=== PATIENT | female | born 1980 | race Caucasian/White ===

== ENCOUNTER → 2020-08-27 10:55 | Outpatient (BNVA) | payer OTHER, SELFPAY | PROVIDERS: PCP Family Medicine; Visit Provider Internal Medicine Cardiovascular Disease | DX: R00.2 Palpitations (principal) | CPT/HCPCS: 93005 ==

== ENCOUNTER → 2020-10-03 13:03 | Outpatient (REF) | payer OTHER, SELFPAY ==
--- NOTE | 2020-10-03 13:07 | CA_ITS ---
Transthoracic Echocardiogram Patient (Last, First, Middle): Jennifer Garza, Gender: Female Date of : 1980 Age: 39 Procedure Date: 10/03/2020 Procedure Type: Transthoracic Echocardiogram Location: OP Height: 162.56 cm Weight: 70.31 kg BSA: 1.76 m2 Heart Rate: bpm BP: 108 / 63 mmHg Patent Clerk: ADOLPH Rose MD: Waqas Christian MD Social Service Coordinator: Per Hamilton MD Symptoms: R00.2 - Palpitations Study Quality: Fair ECG Rhythm: Sinus Conclusions: - Normal study Findings Left Ventricle Normal left ventricular size, thickness, and systolic function. The visually estimated ejection fraction is between 60-65%. Diastolic function is normal for age. Right Ventricle Normal right ventricular cavity size and systolic function. Atria Both atria are normal in size. There is no evidence of interatrial shunt. Aortic Valve Normal aortic valve structure and function. There is mild aortic valve stenosis. There is no aortic valve regurgitation. Mitral Valve Normal mitral valve structure and function. There is trace mitral valve regurgitation. There is no mitral valve stenosis. Pulmonic Valve The pulmonic valve is likely normal. There is trace pulmonic valve regurgitation. Tricuspid Valve Normal tricuspid valve structure. There is trace tricuspid valve regurgitation. The right ventricular systolic pressure is normal. The right ventricular systolic pressure is 17 mmHg. Normal right atrial pressure. There is no evidence of pulmonary hypertension. Great Vessels All visible segments of the aorta are normal in size. The pulmonary artery was not well visualized. Venous The inferior vena cava is normal in size and collapses greater than 50% with inspiration. Pericardium/Pleural There is no evidence of pericardial effusion. Prior Study Comparison No prior study available for comparison. Measurements M-Mode Liner Measurements Normals - Women/Men AOV Cusps: 2.30 1.5-2.6 cm/m2 2D Linear Measurements IVSd: 0.68 0.6-0.9/0.6-1.0 cm LVIDd: 5.15 3.9-5.3/4.2-5.9 cm LVIDd Index: 2.93 2.4-3.2/2.2-3.1 cm/m2 LVIDs: 3.20 2.0-3.6 cm LVPWd: 0.73 0.7-1.1 cm Ao Root: 2.70 2.1-3.5 cm LA Diam: 3.20 2.7-3.8/3.0-4.0 cm LAIDs Index: 1.82 1.5-2.3 cm/m2 LV Mass: 151.27 67-162/88-224 g LV Mass Index: 85.95 43-95/49-115 g/m2 LVOT Diam: 1.90 3.0+(-)1.3 cm 2D Systolic Function EF 4C: 68.30 >55% EF 2C: 70.90 >55% EF BiP: 69.90 >55% Mitral Valve MV Pk E: 0.81 MV PK A: 0.49 MV Decel Time: 204.00 E/A: 1.60 E'Lateral: 14.90 E'Medial: 11.30 E/E' Med: 7.20 E/E' Lat: 5.40 PHT: 60.00 MVA PHT: 3.67 Decel [place]: 3.96 Aortic Valve AoV Pk Addy: 1.47 AoV Pk Grad: 9.00 LVOT LVOT Pk Addy: 0.79 LVOT Mn Addy: 0.58 LVOT VTI: 0.19 LVOT Pk Grad: 3.00 LVOT Mn Grad: 1.00 LVOT Diam: 1.90 LVOT Area: 2.84 Diastolic Function MV Pk E: 0.81 MV Pk A: 0.49 E/A: 1.60 E'Medial: 11.30 E/E' Med: 7.20 E' Laterial: 14.90 E/E' Lat: 5.40 Tricuspid Valve TR Pk Addy: 1.85 TR Pk Grad: 14.00 RA Press: 3.00 RVSP: 17.00 Great Vessels Aorta Ao Root-2D: 2.70 2.0-3.7 cm Ao Asc: 2.60 2.1-3.4 cm Ao Arch: 2.30 Pulmonary Valve PV Pk Addy: 1.30 Peak PV Grad: 7.00 Updated in Other Vendor System with Status of Final Per Hamilton MD electronically signed on 10/03/2020 4:42:43 PM with status of Final
[2020-10-03 14:06] LABS: MANUAL DIFF FLAG NO
[2020-10-03 14:13] LABS: Basophils Absolute Auto 0.1 X10*3/uL (0.0-0.2); Basophils Percent Auto 0.7 % (0-2); Eosinophils Percent Auto 0.3 % (0-4); Hematocrit 38.1 % (37-47); Hemoglobin 12.9 g/dl (12.0-16.0); Imm Gran Abs Auto 0.03 X10*3/uL (0.00-0.03); Imm Gran Pct Auto 0.3 % (0.0-0.4); Lymphocytes Absolute Auto 2.9 X10*3/uL (1.2-4.9); Lymphocytes Percent Auto 32.3 % (20-40); Mean Corpuscular HGB Conc 33.9 g/dl (31.0-35.0); Mean Corpuscular Volume 94.5 fL (80-98); Mean Platelet Volume 9.8 fL (9.4-12.3); Monocytes Absolute Auto 0.8 X10*3/uL (0.1-1.2); Monocytes Percent Auto 9.4 % (2-11); Platelet Count 322 X10*3/uL (160-400); Red Blood Count 4.03 X10*6/uL (4.20-5.50); White Blood Count 8.9 X10*3/uL (4.8-10.8)
[2020-10-03 14:37] LABS: Anion Gap 10 (12-20); Blood Urea Nitrogen 10 mg/dL (9-16); Calcium 8.9 mg/dL (8.4-10.2); Carbon Dioxide 27 mmol/L (22-29); Chloride 104 mmol/L (96-108); Estimated Glomerular Filt Rate > 60; Glucose Random 88 mg/dL (60-115); Sodium 137 mmol/L (135-145)
[2020-10-03 14:43] LABS: Troponin-I High Sensitivity < 3.5 ng/L (<3.5-17.0)
[2020-10-03 15:00] LABS: TSH reflex Free T4 2.39 uIU/mL (0.32-4.0)
== END ==
LOC: HO.CARD 13:03
PROVIDERS: PCP Family Medicine; Visit Provider Internal Medicine Cardiovascular Disease
DX: Z00.00 Encounter for general adult medical examination without abnormal findings (principal); R00.2 Palpitations; R55 Syncope and collapse
CPT/HCPCS: 36415; 80048; 84443; 84484; 85025; 93306

== ENCOUNTER → 2020-10-22 11:02 | Outpatient (BNVA) | payer OTHER, SELFPAY | PROVIDERS: PCP Family Medicine; Visit Provider Nurse Practitioner Family ==

== ENCOUNTER → 2020-12-03 11:48 | Outpatient (BNVA) | payer OTHER, SELFPAY | PROVIDERS: PCP Family Medicine; Visit Provider Nurse Practitioner Family ==

== ENCOUNTER 2022-02-26 07:26 | Outpatient (REF) | payer OTHER, SELFPAY ==
[2022-02-26 07:45] LABS: MANUAL DIFF FLAG NO
[2022-02-26 07:55] LABS: Basophils Absolute Auto 0.1 X10*3/uL (0.0-0.2); Basophils Percent Auto 0.7 % (0-2); Eosinophils Absolute Auto 0.1 X10*3/uL (0.0-0.4); Eosinophils Percent Auto 0.9 % (0-4); Hematocrit 38.3 % (37.0-47.0); Hemoglobin 13.2 g/dl (12.0-16.0); Imm Gran Abs Auto 0.01 X10*3/uL (0.00-0.03); Imm Gran Pct Auto 0.1 % (0.0-0.4); Lymphocytes Absolute Auto 2.7 X10*3/uL (1.2-4.9); Lymphocytes Percent Auto 38.6 % (20-40); Mean Corpuscular HGB Conc 34.5 g/dl (31.0-35.0); Mean Platelet Volume 9.8 fL (9.4-12.3); Monocytes Absolute Auto 0.6 X10*3/uL (0.1-1.2); Monocytes Percent Auto 9.2 % (2-11); Neutrophils Absolute Auto 3.5 x10*3/uL (2.0-8.3); Neutrophils Percent Auto 50.5 % (45-73); Platelet Count 319 X10*3/uL (160-400); Red Blood Count 4.12 X10*6/uL (4.20-5.50); Red Cell Distribution Width 12.3 % (11.0-16.0)
[2022-02-26 08:22] LABS: Alanine Aminotransferase 16 U/L (0-31); Albumin Level 4.3 g/dL (3.5-5.0); Alkaline Phosphatase 60 U/L (39-117); Anion Gap 14 (12-20); Aspartate Amino Transferase 18 U/L (5-31); Bilirubin Total 0.7 mg/dL (0.0-1.0); Blood Urea Nitrogen 6 mg/dL (9-16); Calcium 8.9 mg/dL (8.4-10.2); Carbon Dioxide 24 mmol/L (22-29); Chloride 103 mmol/L (96-108); Cholesterol 183 mg/dL; Estimated Glomerular Filt Rate > 60; Glucose Fasting 86 mg/dL (60-99); HDL Cholesterol 60 mg/dL; LDL Cholesterol Calculated 112 mg/dl; Potassium 3.9 mmol/L (3.3-5.1); Sodium 137 mmol/L (135-145); Total Protein 6.6 g/dL (6.5-8.0); Triglycerides 59 mg/dL
[2022-02-26 09:30] LABS: Free T4 (Free Thyroxine) 1.07 ng/dL (0.71-1.85)
== END 2022-02-26 07:27 | disposition home or self-care (01) ==
LOC: HO.LAB 07:26
PROVIDERS: PCP Family Medicine; Visit Provider Nurse Practitioner Family
DX: Z00.00 Encounter for general adult medical examination without abnormal findings (principal)
CPT/HCPCS: 36415; 80053; 80061; 84439; 84443; 85025

== ENCOUNTER 2022-03-05 12:28 | Outpatient (REF) | payer OTHER, SELFPAY ==
[2022-03-08 17:12] LABS: Thyroid Peroxidase Antibodies 1 IU/mL (<9)
== END 2022-03-05 12:29 | disposition home or self-care (01) ==
LOC: HO.WFDLDS 12:28
PROVIDERS: Visit Provider Nurse Practitioner Family
DX: E03.8 Other specified hypothyroidism (principal)
CPT/HCPCS: 36415; 86376

== ENCOUNTER 2022-06-22 11:43 | Outpatient (REF) | payer OTHER, SELFPAY ==
[2022-06-22 14:40] LABS: TSH reflex Free T4 3.13 uIU/mL (0.32-4.0)
== END 2022-06-22 11:44 | disposition home or self-care (01) ==
LOC: HO.WFDLDS 11:43
PROVIDERS: Visit Provider Nurse Practitioner Family
DX: E03.8 Other specified hypothyroidism (principal)
CPT/HCPCS: 36415; 84443

== ENCOUNTER 2022-11-09 15:00 | Outpatient (RCR) | payer OTHER, SELFPAY ==
--- NOTE | 2022-09-08 09:02 | MHC.OT.EP ---
[address] [phone] Occupational Therapy Plan of Care Date of Evaluation: 09/08/22 Diagnosis: Right elbow pain Pain Location: 2/10 mild pain at rest 6/10 sharp pain w/ use Pain Score: 6 Aggravating Factors: Reaching, grasping, sleeping Alleviating Factors: Occasional ibuprofen, topical cream Trialed ice and heat Assessment: 41 yo right hand dominant female presents w/ persistent right elbow pain over the past few months. She reports pain w/ reaching, grasping, lifting, sleeping and some work tasks. On assessment, ROM and gross UE strength are WFL, but right gross grasp is weakened, even moreso w/ elbow extended. She reports mild tenderness over right lateral epicondyle and some tension/fatigue in mobile wad. We have initiated treatment for right lateral epicondylitis w/ CFB, massage and general information of joint protection and activity modification, she will benefit from cont'd therapy services for opitmal gains and return to full daily activities. Frequency and Duration: The patient will be seen 2x/wk Short Term Goals: Ind w/ CFB wear Pt to report ease w/ sleep w/ modifications to positionijng Pt to report good follow through w/ joint protection and activity modification Good follow through w/ HEP Seismology Teacher Goals: Pain from right elbow w/ moderate daily activities Right gross grasp >45lb w/ minimal pain/discomfort Ind w/ progression of eccentric strengthening exercises Pt to return to running and light strengthening routine Complete/discuss work modifications and worksite ergonomic assessment Treatment Plan: Therapeutic Exercise Therapeutic Activity Home Exercise Program Patient Education ADL Training Ultrasound Iontophoresis MHP Cold Packs Joint Mobilization Soft Tissue Mobilization Kinesiotaping Dexamethasone Electronically Signed By: iMtra Freeman OTR/L CHT Please Sign and return to therapist. Thank you once again for your referral.
--- NOTE | 2022-11-09 15:37 | MHC.OT.DC ---
[address] [phone] F: [phone] Occupational Therapy Discharge Note Patient Name: Jennifer Garza Provider: Merlin Garcia NP Diagnosis: Right elbow pain Date of Evaluation: 09/08/22 Date of Discharge: 11/09/22 Treatments to Date: 8 Discharge Status: Achieved Goals Improved Function Independent with HEP Discharge Summary: Jennifer was referred to OT w/ acute right lateral epicondylitis. She has done well w/ home exercise program, activity modification, and wearing counter-force brace appropriately. She reports some discomfort after running and upper body strengthening at gym, but overall has low pain and good follow through w/ recommendations for self management. Electronically Signed By: STEPHANIE Kiser/Diandra Reviewed/agree with student documentation: Therapist: Please Sign and return to therapist, thank you for your referral.
== END 2022-11-09 15:37 | disposition home or self-care (01) ==
LOC: HO.OT 15:00
PROVIDERS: PCP Nurse Practitioner Family; Visit Provider Nurse Practitioner Family
DX: M77.11 Lateral epicondylitis, right elbow (principal)
CPT/HCPCS: 97035; 97110; 97140; 97165

== ENCOUNTER 2023-03-22 13:58 | Outpatient (AMB) | payer OTHER, SELFPAY ==
--- NOTE | 2023-03-22 13:59 | MHC.PC.OV ---
Vital Signs 03/22/23 14:00 Height 5 ft 4 in Weight 153 lb 2 oz BMI 26.3 BP 98/66 Blood Pressure Location Lt brachial Position Sitting Respiration 12 Pulse 62 Pulse Source Pulse Oximeter Temp 97.3 F Temp Source Temporal Artery Scan Pulse Oximetry (%) 99 Oxygen Delivery Method Room Air Intake Visit Reasons: Orthopedic Referral-Bone Spur on Left Big Toe Intake Note: Patient states that shes had this going on for about 11 years. Patient states that she has been to Orthopedics but it was years ago and now it has been bothering her way more and she has stopped running due to it. Patient states she has limited mobility of the left big toe and the pain is shooting into her ankle. Manager Social Services Required: No Accompanied by: Self / Same As Patient Allergies sulfamethoxazole [From Bactrim] Allergy (Intermediate, Verified 03/22/23 14:29) Dizziness trimethoprim [From Bactrim] Allergy (Intermediate, Verified 03/22/23 14:29) Dizziness amoxicillin Allergy (Unknown, Verified 03/22/23 14:29) hives penicillin V Allergy (Unknown, Verified 03/22/23 14:29) hives sertraline [From Zoloft] Allergy (Unknown, Verified 03/22/23 14:29) SON ABD PAIN Medication List - Last Reconciled 03/22/23 by Merlin Garcia CNP albuterol sulfate 90 mcg/actuation 2 puffs PO Q6H PRN 30 days ibuprofen 600 mg PO Q8H PRN lorazepam 0.5 mg PO ONCE PRN 4 days rizatriptan take 1 tab at onset of headache; if no relief may repeat 1 tab after at least 2 hrs; max = 3 tabs/24 hr PO Tobacco use date assessed: 11/22/22 Dental Screening Dental Screen Date: 03/22/23 Did you have a dental visit in the last 12 months?: Yes Did you have a dental problem in the last 6 months where you did not have access to dental care?: No Was dental information given to patient?: Patient has dentist HPI HPI Comments History of Present Illness Details 42-year-old female present with complaints of bone spur to her left great toe which has been present for 11 years. She notes intermittent pain from the top of the left great toe and sometimes radiates to the ankle. She states the pain limits her mobility and she completely stopped running 2 months ago. She notes she was followed by [facility] in 2012 and was diagnosed as a bone spur. She notes she already an appointment with Dr. Mckeon, orthopedics surgeon next month and requests a referral. [facility] Medical History History of palpitations Surgical History History of wisdom tooth extraction Family History (Updated 03/22/23 @ 14:11 by Ashley Almanza MA) Mother Breast cancer Maternal Grandfather Atrial fibrillation Paternal Grandmother Heart valve replaced Father No problems noted. 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 Barney Sommers, Guillermina Bhatti, Nirav Molina and colleagues, with an educational linda from [employer]. Review of Systems Const Details: Const Denies chills, Denies fatigue, Denies fever(s), Denies headache(s) and Denies weakness ENT Denies dizziness and Denies headache(s) Card Denies chest pain, Denies lightheadedness, Denies dyspnea and Denies other (Palpitations) Resp Denies cough, Denies dyspnea, Denies wheezing and Denies other ( shortness of breath) GI Denies abdominal pain, Denies melena, Denies hematochezia, Denies change in bowel habits, Denies dyspepsia and Denies nausea Denies hematuria and Denies dysuria Musc Reports as per HPI Skin/Breast Denies rash, Denies unusual bruising and Denies wounds Neuro Denies abnormal gait, Denies dizziness, Denies headache(s), Denies memory loss, Denies numbness, Denies Sensory deficit (Neuro), Denies tingling and Denies weakness Psych Denies anxiety, Denies depression, Denies memory loss Endo Denies cold intolerance, Denies fatigue, Denies heat intolerance, Denies polydipsia and Denies polyuria Aller/Immun Denies wheezing Physical exam (Primary Care) Vital Signs: Last Vital Signs Temp 97.3 F 03/22/23 14:00 Pulse 62 03/22/23 14:00 Resp 12 03/22/23 14:00 BP 98/66 03/22/23 14:00 Pulse Ox 99 03/22/23 14:00 Oxygen Delivery Method Room Air 03/22/23 14:00 BMI result Body Mass Index 26.3 Tobacco/Smoking Status: Tobacco use Status Tobacco use date assessed 11/22/22 03/22/23 14:13 Patient Tobacco Use Status Former Tobacco user 03/22/23 14:13 e-Cigarette/Vaping Use Never Used 03/22/23 14:13 Thrive Assessment: Date of Thrive Assessment Date Thrive assessed 11/22/22 03/22/23 14:13 Const Other: General: no acute distress and well developed Nutritional Appearance: well nourished Orientation/consciousness: patient oriented x3 HENMT Head: Yes normocephalic and Yes atraumatic Eyes General: appearance normal, both eyes and all related structures Pupils: Equal, round and reactive pupils present EOM: EOMs intact bilaterally Resp Effort & Inspection: normal respiratory effort Auscultation: clear to auscultation bilaterally Cardio Rate: regular rate Rhythm: regular rhythm Heart sounds: S1 normal heart sound present, S2 normal heart sound present, no gallops, no murmurs and no rubs GI Palpation (GI): No Abdominal aortic bruit present, Soft to palpation, nontender, No hepatosplenomegaly present and No Rebound tenderness present Auscultation: normal bowel sounds General: Yes no CVA tenderness Back/Spine/Pelvis Back: no CVA tenderness Cervical Spine: cervical ROM normal and No Cervical spine tenderness Thoracic/Lumbar Spine: thoraco-lumbar ROM normal, No pain with thoraco-lumbar ROM, No thoracic spinal tenderness and No lumbar spinal tenderness Extrem General: Yes normal to inspection, No edema and No calf tenderness Normal ROM of the left great toe, no edema, erythema or overt trauma/injury Skin General: warm and dry. Normal skin color. Normal skin turgor Lesions: no lesions Rashes: no rashes Trauma: no lacerations or abrasions Wounds: no wounds Nails: normal Neuro General: patient oriented x3, gait normal and no focal neuro deficit Cranial nerves: Yes Equal, round and reactive pupils present Cognition (Neuro): normal cognition Gait exam (Neuro): Normal gait present Sensory Exam: No Sensory deficit (Neuro) Psych Appearance: grossly normal Affect: normal affect Attitude: cooperative Thought process: Normal thought process present Assessment and Plan Assessment & Plan (1) Pain of left great toe: Code(s): M79.675 - Pain in left toe(s) Plan: Normal ROM of the left great toe, no edema, erythema or overt trauma/injury Likely bone spur although arthritis as possible Ibuprofen as prescribed Warm/cold compresses encouraged Referred to orthopedic surgery Return with worsening or new symptoms Verbalized understanding and agreed with treatment plan. Orders: Referrals Orthopedics Referral M79.675 - Pain in left toe(s) Coding Level of Care Code Est Pt Level 3 (30691) Diagnoses Pain of left great toe M79.675
[2023-03-22 14:00] VITALS: BP 98/66; PULSE 62; RESP 12; TEMP 36.3; O2SAT 99; BMI 26.3
== END 2023-03-22 14:50 | disposition home or self-care (01) ==
PROVIDERS: PCP Nurse Practitioner Family; Visit Provider Nurse Practitioner Family
DX: M79.675 Pain in left toe(s) (principal)
CPT/HCPCS: 99213

== ENCOUNTER 2023-04-05 15:48 | Outpatient (AMB) | payer OTHER, SELFPAY ==
--- NOTE | 2023-04-05 15:51 | A.OFFPC_ITS ---
Vital Signs 04/05/23 15:52 Height 5 ft 4 in Weight 151 lb 6 oz BMI 26.0 BP 98/64 Blood Pressure Location Rt brachial Position Sitting Respiration 12 Pulse 70 Pulse Source Pulse Oximeter Temp 97 F Temp Source Temporal Artery Scan Pulse Oximetry (%) 99 Oxygen Delivery Method Room Air Intake Visit Reasons: Cheilectomy/Real Osteotomy Surgery lt foot 05/02/23, Pre-op visit (general surgery) Operations Project Manager Required: No Accompanied by: Self / Same As Patient Allergies sulfamethoxazole [From Bactrim] Allergy (Intermediate, Verified 04/05/23 16:15) Dizziness trimethoprim [From Bactrim] Allergy (Intermediate, Verified 04/05/23 16:15) Dizziness amoxicillin Allergy (Unknown, Verified 04/05/23 16:15) hives penicillin V Allergy (Unknown, Verified 04/05/23 16:15) hives sertraline [From Zoloft] Allergy (Unknown, Verified 04/05/23 16:15) SON ABD PAIN Medication List - Last Reconciled 04/05/23 by Merlin Garcia CNP albuterol sulfate 90 mcg/actuation 2 puffs PO Q6H PRN 30 days ibuprofen 600 mg PO Q8H PRN lorazepam 0.5 mg PO ONCE PRN 4 days rizatriptan take 1 tab at onset of headache; if no relief may repeat 1 tab after at least 2 hrs; max = 3 tabs/24 hr PO Tobacco use date assessed: 11/22/22 Dental Screening Dental Screen Date: 04/05/23 Did you have a dental visit in the last 12 months?: Yes Did you have a dental problem in the last 6 months where you did not have access to dental care?: No Was dental information given to patient?: Patient has dentist HPI HPI Comments History of Present Illness Details 42-year-old female presents for a preop exam. She notes she has surgery on 05/02/2023 to remove bone spur to left great toe. She notes that her last Pap smear is test was a year ago: Normal [facility] Medical History History of palpitations Surgical History History of wisdom tooth extraction Family History Mother Breast cancer Maternal Grandfather Atrial fibrillation Paternal Grandmother Heart valve replaced Father No problems noted. 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 Barney Sommers, Guillermina Bhatti, Nirav Molina and colleagues, with an educational linda from [employer]. Review of Systems Const Details: Denies chills, Denies fatigue, Denies fever(s), Denies headache(s) and Denies weakness HEENT Denies change in vision, Denies dizziness, Denies headache(s), Denies hearing loss, Denies nasal congestion, Denies sinus pain, Denies sinus pressure and Denies sore throat Card Denies chest pain, Denies lightheadedness, Denies dyspnea and Denies other (palpitations) Resp Denies cough, Denies dyspnea and Denies wheezing GI Denies abdominal pain, Denies melena, Denies hematochezia, Denies change in bowel habits, Denies dyspepsia and Denies nausea Denies hematuria and Denies dysuria Musc Denies abnormal gait, Denies myalgias, Denies arthralgias, Denies numbness and Denies tingling Skin/Breast Denies rash, Denies unusual bruising and Denies wounds Neuro Denies abnormal gait, Denies dizziness, Denies headache(s), Denies memory loss, Denies numbness, Denies Sensory deficit (Neuro), Denies tingling and Denies weakness Psych Denies anxiety, Denies depression and Denies memory loss Endo Denies cold intolerance, Denies fatigue, Denies heat intolerance, Denies polydipsia and Denies polyuria Scotty/Lymph Denies easy bleeding and Denies easy bruising Aller/Immun Denies wheezing Physical exam (Primary Care) Vital Signs: Last Vital Signs Temp 97 F 04/05/23 15:52 Pulse 70 04/05/23 15:52 Resp 12 04/05/23 15:52 BP 98/64 04/05/23 15:52 Pulse Ox 99 04/05/23 15:52 Oxygen Delivery Method Room Air 04/05/23 15:52 BMI result Body Mass Index 26.0 Tobacco/Smoking Status: Tobacco use Status Tobacco use date assessed 11/22/22 04/05/23 16:00 Patient Tobacco Use Status Former Tobacco user 04/05/23 16:00 e-Cigarette/Vaping Use Never Used 04/05/23 16:00 Thrive Assessment: Date of Thrive Assessment Date Thrive assessed 11/22/22 04/05/23 16:00 Const Other: General: no acute distress, well developed, alert and awake Nutritional Appearance: well nourished Orientation/consciousness: patient oriented x3 HENMT Head: Yes normocephalic and Yes atraumatic Ears: hearing grossly normal bilaterally and TM's normal bilaterally General nose exam: Normal external nose present and Normal nares present Mouth: Normal oral and palatal mucosa present and moist mucous membranes Teeth and gingiva: dentition normal Throat: Yes oropharynx normal Eyes Pupils: Equal, round and reactive pupils present and Pupil accommodation reflex normal EOM: EOMs intact bilaterally Neck Neck: Yes normal visual inspection, Yes no lymphadenopathy and Yes trachea midline Thyroid: Thyroid normal Carotids: no bruits Lymphatic: no lymphadenopathy noted Chest Chest palpation & inspection: normal inspection of the chest Resp Effort & Inspection: normal respiratory effort Auscultation: clear to auscultation bilaterally Cardio Rate: regular rate Rhythm: regular rhythm Heart sounds: S1 normal heart sound present, S2 normal heart sound present, no gallops, no murmurs and no rubs Bruits: no abdominal aortic bruits and no carotid bruits GI Palpation (GI): No Abdominal aortic bruit present, Soft to palpation, nontender, No hepatosplenomegaly present and No Rebound tenderness present Auscultation: normal bowel sounds General: Yes no CVA tenderness Back/Spine/Pelvis Back: no CVA tenderness Cervical Spine: cervical ROM normal and No Cervical spine tenderness Thoracic/Lumbar Spine: thoraco-lumbar ROM normal, No pain with thoraco-lumbar ROM, No thoracic spinal tenderness and No lumbar spinal tenderness Skin General: warm and dry. Normal skin color. Normal skin turgor Lesions: no lesions Rashes: no rashes Trauma: no lacerations or abrasions Wounds: no wounds Nails: normal Neuro General: patient oriented x3, gait normal and CN's II-XI intact bilaterally Cranial nerves: Yes Equal, round and reactive pupils present Cognition (Neuro): normal cognition Gait exam (Neuro): Normal gait present Motor exam (neuro): 5/5 motor strength present throughout Sensory Exam: No Sensory deficit (Neuro) Deep tendon reflexes (DTR's): Right patellar reflex intensity grade: 2+ and Left patellar reflex intensity grade: 2+ Extrem General: Yes normal to inspection, No edema and No calf tenderness Psych Appearance: grossly normal Affect: normal affect Attitude: cooperative Thought process: Normal thought process present Assessment and Plan Assessment & Plan (1) Routine physicl lab exam: Code(s): Z00.00 - Encounter for general adult medical examination without abnormal findings Plan: Normal physical exam of 42-year-old female No significant physical restrictions or limitations noted Labs ordered Will review results and affect patient with significant findings Return with symptoms or concerns Verbalized understanding and agreed with the plan. Orders: Orders Complete Blood Count Auto Diff Today Z00.00 - Encounter for general adult medical examination without abnormal findings Comprehensive [place]. Panel Fast Today Z00.00 - Encounter for general adult medical examination without abnormal findings Coding Level of Care Code Est Pt Prev Care 40-64y(66200) Diagnoses Routine physicl lab exam Z00.00
[2023-04-05 15:52] VITALS: BP 98/64; PULSE 70; RESP 12; TEMP 36.1; O2SAT 99; BMI 26.0
== END 2023-04-05 16:29 | disposition home or self-care (01) ==
PROVIDERS: PCP Nurse Practitioner Family; Visit Provider Nurse Practitioner Family
DX: Z00.00 Encounter for general adult medical examination without abnormal findings (principal)
CPT/HCPCS: 99396

== ENCOUNTER 2023-04-29 08:30 | Outpatient (REF) | payer OTHER, SELFPAY | END 2023-04-29 08:31 | disposition home or self-care (01) | LOC: HO.LAB 08:30 | PROVIDERS: PCP Nurse Practitioner Family; Visit Provider Nurse Practitioner Family | DX: Z00.00 Encounter for general adult medical examination without abnormal findings (principal) | CPT/HCPCS: 36415; 80053; 85025 ==

== ENCOUNTER 2024-01-11 11:03 | Outpatient (REF) | payer OTHER, SELFPAY ==
[2024-01-11 11:28] LABS: MANUAL DIFF FLAG NO
[2024-01-11 12:14] LABS: Basophils Absolute Auto 0.1 X10*3/uL (0.0-0.2); Basophils Percent Auto 1.2 % (0-2); Eosinophils Absolute Auto 0.1 X10*3/uL (0.0-0.4); Eosinophils Percent Auto 1.2 % (0-4); Hematocrit 39.3 % (37.0-47.0); Hemoglobin 13.7 g/dl (12.0-16.0); Imm Gran Abs Auto 0.02 X10*3/uL (0.00-0.03); Imm Gran Pct Auto 0.3 % (0.0-0.4); Lymphocytes Absolute Auto 2.9 X10*3/uL (1.2-4.9); Lymphocytes Percent Auto 39.6 % (20-40); Mean Corpuscular HGB Conc 34.9 g/dl (31.0-35.0); Mean Corpuscular Volume 91.8 fL (80.0-98.0); Mean Platelet Volume 9.9 fL (9.4-12.3); Monocytes Absolute Auto 0.6 X10*3/uL (0.1-1.2); Monocytes Percent Auto 8.4 % (2-11); Neutrophils Absolute Auto 3.7 x10*3/uL (2.0-8.3); Neutrophils Percent Auto 49.3 % (45-73); Platelet Count 315 X10*3/uL (160-400); Red Blood Count 4.28 X10*6/uL (4.20-5.50); Red Cell Distribution Width 12.4 % (11.0-16.0); White Blood Count 7.4 X10*3/uL (4.8-10.8)
[2024-01-11 12:55] LABS: Alanine Aminotransferase 18 U/L (0-31); Albumin Level 4.2 g/dL (3.5-5.0); Alkaline Phosphatase 65 U/L (39-117); Anion Gap 10 (12-20); Aspartate Amino Transferase 19 U/L (5-31); Bilirubin Total 0.5 mg/dL (0.0-1.0); Blood Urea Nitrogen 7 mg/dL (9-16); Calcium 9.1 mg/dL (8.4-10.2); Carbon Dioxide 27 mmol/L (22-29); Chloride 106 mmol/L (96-108); Cholesterol 205 mg/dL (<200); Estimated Glomerular Filt Rate > 60; Gamma Glutamyl Transpeptidase 12 U/L (7-33); Glucose Random 88 mg/dL (60-115); HDL Cholesterol 64 mg/dL (>40); Iron 95 mcg/dL (30-160); LDL Cholesterol Calculated 124 mg/dL (<100); Percent Iron Saturation 31 % (15-50); Potassium 3.7 mmol/L (3.3-5.1); Sodium 139 mmol/L (135-145); Total Iron Binding Capacity 311 mcg/dL (228-428); Total Protein 6.9 g/dL (6.5-8.0); Triglycerides 86 mg/dL (<150); Unsaturated Iron Binding 216 ug/dL
[2024-01-11 12:59] LABS: Parathyroid Hormone Intact 66.7 pg/mL (8.7-77.1)
[2024-01-11 13:17] LABS: Ferritin 30 ng/mL (10-250); Free T4 (Free Thyroxine) 0.94 ng/dL (0.71-1.85); Insulin 4 uU/mL (2-29); Thyroid Stimulating Hormone 2.74 uIU/mL (0.32-4.0); Vitamin D 25-OH Total 33.1 ng/mL (>30)
[2024-01-12 16:34] LABS: DHEA Sulfate 37 mcg/dL (15-205); Follicle Stimulating Hormone 6.7 mIU/mL; Lutenizing Hormone 5.5 mIU/mL; Triiodothyronine T3 Free 3.1 pg/mL (2.3-4.2)
[2024-01-12 16:48] LABS: Homocysteine 7.8 umol/L (<10.4)
[2024-01-12 17:39] LABS: Thyroglobulin Antibodies <1 IU/mL (< or = 1); Thyroid Peroxidase Antibodies 1 IU/mL (<9)
[2024-01-12 22:18] LABS: CRP High Sensitivity <0.2 mg/L
[2024-01-15 11:57] LABS: Methylmalonic Acid 112 nmol/L (55-335); Triiodothyronine T3 Reverse 13 ng/dL (8-25)
[2024-01-17 12:12] LABS: Testosterone, Free 2.7 pg/mL (0.1-6.4); Testosterone, Total 33 ng/dL (2-45)
[2024-01-19 08:56] LABS: Estradiol Ultra Sensitive 160 pg/mL
[2024-01-19 08:57] LABS: Dihydrotestosterone <5 ng/dL (< OR = 20)
[2024-01-21 01:49] LABS: Progesterone 6.1 ng/mL
== END 2024-01-11 11:04 | disposition home or self-care (01) ==
LOC: HO.LAB 11:03
PROVIDERS: PCP Nurse Practitioner Family; Visit Provider Internal Medicine
DX: E03.9 Hypothyroidism, unspecified (principal); F32.81 Premenstrual dysphoric disorder; E11.9 Type 2 diabetes mellitus without complications; D64.9 Anemia, unspecified; E28.2 Polycystic ovarian syndrome; E78.5 Hyperlipidemia, unspecified; K76.0 Fatty (change of) liver, not elsewhere classified; R53.83 Other fatigue
CPT/HCPCS: 36415; 80053; 80061; 82306; 82627; 82642; 82670; 82728; 82977; 83001; 83002; 83090; 83525; 83540; 83921; 83970; 84144; 84402; 84403; 84439; 84443; 84481; 84482; 85025; 86141; 86376; 86800

== ENCOUNTER 2024-04-10 10:27 | Outpatient (AMB) | payer OTHER, SELFPAY ==
--- NOTE | 2024-04-10 10:35 | A.OFFPC_ITS ---
Vital Signs 04/10/24 10:40 Height 5 ft 4 in Weight 152 lb 8 oz BMI 26.2 BP 102/62 Blood Pressure Location Rt brachial Position Sitting Respiration 16 Pulse 66 Pulse Source Pulse Oximeter Temp 97.9 F Temp Source Oral Pulse Oximetry (%) 99 Oxygen Delivery Method Room Air Intake Visit Reasons: cpe Intake Note: patient here for CPE. 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 Is last menstrual period known: Yes Last menstrual period: 03/16/24 Post menopausal: No Patient : No Allergies sulfamethoxazole [From Bactrim] Allergy (Intermediate, Verified 04/10/24 10:56) Dizziness trimethoprim [From Bactrim] Allergy (Intermediate, Verified 04/10/24 10:56) Dizziness amoxicillin Allergy (Unknown, Verified 04/10/24 10:56) hives penicillin V Allergy (Unknown, Verified 04/10/24 10:56) hives sertraline [From Zoloft] Allergy (Unknown, Verified 04/10/24 10:56) SON ABD PAIN Medication List - Last Reconciled 04/10/24 by Merlin Garcia CNP albuterol sulfate 90 mcg/actuation 2 puffs PO Q6H PRN 30 days ibuprofen 600 mg PO Q8H PRN lorazepam 0.5 mg PO ONCE PRN 4 days rizatriptan take 1 tab at onset of headache; if no relief may repeat 1 tab after at least 2 hrs; max = 3 tabs/24 hr PO Tobacco use date assessed: 04/10/24 Dental Screening Dental Screen Date: 04/10/24 Did you have a dental visit in the last 12 months?: Yes Did you have a dental problem in the last 6 months where you did not have access to dental care?: No Was dental information given to patient?: Patient has dentist HPI HPI Comments History of Present Illness Details 43-year-old female presents for an exten ded physical exam She has past medical history significant for anxiety, depression, and asthma. Her anxiety and depressive symptoms have been controlled without medications. She takes PRN ativan as needed for certain triggers such as flying. She notes that her asthma is well controlled. She also has history of left hallux valgus post surgery in 05/2023; she notes her mobility to the left great toe has been limited since the surgery. She had 8 weeks of physical therapy following the surgery She admits to taking her medications as prescribed without adverse reactions She notes that she eats and sleep well, she has been exercising routinely Former smoker. Drinks tequila or vodka 1-2 times monthly. 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 1. Little interest or pleasure in doing things: not at all 2. Feeling down, depressed, or hopeless: several days 3. Trouble falling or staying asleep, or sleeping too much: several days 4. Feeling tired or having little energy: several days 5. Poor appetite or overeating: not at all 6. Feeling bad about yourself - or that you are a failure or have let yourself or your family down: not at all 7. Trouble concentrating on things, such as reading the newspaper or watching television: several days 8. Moving or speaking so slowly that other people could have noticed. Or the opposite - being so fidgety or restless that you have been moving around a lot more than usual: not at all 9. Thoughts that you would be better off or of hurting yourself in some way: not at all Total score: 4 Depression Screening Interpretation: Negative Depression Screening Done: Yes 31816 - PHQ-9 Billing: Yes Source: Developed by Drs. Barney Sommers, Guillermina Bhatti, Nirav Molina and colleagues, with an educational linda from [employer]. Thrive Questionnaire Date Thrive assessed: 04/10/24 I am a: Patient What is your living situation today?: I have a steady place to live Within the past 12 months, did the food you bought not last and you didn't have the money to get more?: Never true Within the past 12 months, did you worry whether your food would run out before you got money to buy more?: Never true Do you have trouble paying for medicines?: No Do you have trouble getting transportation to medical appointments?: No Do you have trouble paying your heating and electricity bill?: No Do you have trouble taking care of your child, family member or friend?: No Do you have trouble with day-to-day activities such as bathing, preparing meals, shopping, managing finances, etc.?: No Are you currently unemployed and looking for a job?: No Are you interested in more education?: No Please select the resources that you would like help with: None Currently or been in a relationship where the following occur: No concerns reported THRIVE Score: 0 AUDIT C Alcohol Use Questionnaire (AUDIT-C) 1. How often do you have a drink containing alcohol?: 2-4 times a month 2. How many drinks containing alcohol do you have on a typical day when you are drinking?: 1 or 2 3. How often do you have six or more drinks on one occasion?: Never Total Score: 2 Score Reviewed/Action Taken: Yes BOBY-7 AMB Questionnaire BOBY-7 Date BOBY - 7 assessed: 04/10/24 Feeling nervous, anxious, or on edge: 1 = Several days Not being able to stop or control worryin = Not at all Worrying too much about different things: 1 = Several days Trouble relaxin = Not at all Being so restless that it is hard to sit still: 0 = Not at all Becoming easily annoyed or irritable: 1 = Several days Feeling afraid as if something awful might happen: 1 = Several days Total BOBY-7 score (0-4 normal; 5-9 mild; 10-14 moderate; 15-21 severe): 4 Source: Developed by Drs. Barney Sommers, Guillermina Bhatti, Nirav Molina and colleagues, with an educational linda from [employer]. BOBY-7 Assessment Billing BOBY-7 Assessment Tool: BOBY-7 Assessment 88825 ACT Questionnaire In the past 4 weeks, how much of the time did your asthma keep you from getting as much done at work, school or at home?: None of the time During the past 4 weeks, how often have you had shortness of breath?: Not at all During the past 4 weeks, how often did your asthma symptoms wake you up at night or earlier than usual in the morning?: Not at all During the past 4 weeks, how often have you had to use your rescue inhaler or nebulizer medication?: Not at all How would you rate your asthma control during the past 4 weeks?: Well controlled Score: 24 Review of Systems Const Details: Denies chills, Denies fatigue, Denies fever(s), Denies headache(s) and Denies weakness HEENT Denies change in vision, Denies dizziness, Denies headache(s), Denies hearing loss, Denies nasal congestion, Denies sinus pain, Denies sinus pressure and Denies sore throat Card Denies chest pain, Denies lightheadedness, Denies dyspnea and Denies other (palpitations) Resp Denies cough, Denies dyspnea and Denies wheezing GI Denies abdominal pain, Denies melena, Denies hematochezia, Denies change in bowel habits, Denies dyspepsia and Denies nausea Denies hematuria and Denies dysuria Musc Denies abnormal gait, Denies myalgias, Denies arthralgias, Denies numbness and Denies tingling Skin/Breast Denies rash, Denies unusual bruising and Denies wounds Neuro Denies abnormal gait, Denies dizziness, Denies headache(s), Denies memory loss, Denies numbness, Denies Sensory deficit (Neuro), Denies tingling and Denies weakness Psych Denies anxiety, Denies depression and Denies memory loss Endo Denies cold intolerance, Denies fatigue, Denies heat intolerance, Denies polydipsia and Denies polyuria Scotty/Lymph Denies easy bleeding and Denies easy bruising Aller/Immun Denies wheezing Physical exam (Primary Care) Vital Signs: Last Vital Signs Temp 97.9 F 04/10/24 10:40 Pulse 66 04/10/24 10:40 Resp 16 04/10/24 10:40 BP 102/62 04/10/24 10:40 Pulse Ox 99 04/10/24 10:40 Oxygen Delivery Method Room Air 04/10/24 10:40 BMI result Body Mass Index 26.2 Tobacco/Smoking Status: Tobacco use Status Tobacco use date assessed 04/10/24 04/10/24 10:39 Patient Tobacco Use Status Former Tobacco user 04/10/24 10:39 e-Cigarette/Vaping Use Never Used 04/10/24 10:39 PHQ-9: PHQ-9 Score PHQ-9: Total score 4 04/10/24 10:44 Depression Screening Interpretation: Negative Thrive Assessment: Date of Thrive Assessment Date Thrive assessed 04/10/24 04/10/24 10:44 Currently or been in a relationship where the following occur: No concerns reported Const Other: General: no acute distress, well developed, alert and awake Nutritional Appearance: well nourished Orientation/consciousness: patient oriented x3 HENMT Head: Yes normocephalic and Yes atraumatic Ears: hearing grossly normal bilaterally and TM's normal bilaterally General nose exam: Normal external nose present and Normal nares present Mouth: Normal oral and palatal mucosa present and moist mucous membranes Teeth and gingiva: dentition normal Throat: Yes oropharynx normal Eyes Pupils: Equal, round and reactive pupils present and Pupil accommodation reflex normal EOM: EOMs intact bilaterally Neck Neck: Yes normal visual inspection, Yes no lymphadenopathy and Yes trachea mi dline Thyroid: Thyroid normal Carotids: no bruits Lymphatic: no lymphadenopathy noted Chest Chest palpation & inspection: normal inspection of the chest Resp Effort & Inspection: normal respiratory effort Auscultation: clear to auscultation bilaterally Cardio Rate: regular rate Rhythm: regular rhythm Heart sounds: S1 normal heart sound present, S2 normal heart sound present, no gallops, no murmurs and no rubs Bruits: no abdominal aortic bruits and no carotid bruits GI Palpation (GI): No Abdominal aortic bruit present, Soft to palpation, nontender, No hepatosplenomegaly present and No Rebound tenderness present Auscultation: normal bowel sounds General: Yes no CVA tenderness Back/Spine/Pelvis Back: no CVA tenderness Cervical Spine: cervical ROM normal and No Cervical spine tenderness Thoracic/Lumbar Spine: thoraco-lumbar ROM normal, No pain with thoraco-lumbar ROM, No thoracic spinal tenderness and No lumbar spinal tenderness Skin General: warm and dry. Normal skin color. Normal skin turgor Lesions: no lesions Rashes: no rashes Trauma: no lacerations or abrasions Wounds: no wounds Nails: normal Neuro General: patient oriented x3, gait normal and CN's II-XI intact bilaterally Cranial nerves: Yes Equal, round and reactive pupils present Cognition (Neuro): normal cognition Gait exam (Neuro): Normal gait present Motor exam (neuro): 5/5 motor strength present throughout Sensory Exam: No Sensory deficit (Neuro) Deep tendon reflexes (DTR's): Right patellar reflex intensity grade: 2+ and Left patellar reflex intensity grade: 2+ Extrem General: Yes normal to inspection, No edema and No calf tenderness Psych Appearance: grossly normal Affect: normal affect Attitude: cooperative Thought process: Normal thought process present Assessment and Plan Assessment & Plan (1) Normal physical exam: Code(s): Z00.00 - Encounter for general adult medical examination without abnormal findings Plan: No significant physical restrictions or limitations noted Continue current treatment regimen Healthy diet and routine exercise encouraged Advised to get lab work done and follow-up for telehealth visit in 2-3 weeks for labs review Return sooner with symptoms or concerns Verbalized understanding and agreed with the treatment plan (2) Asthma: Code(s): J45.909 - Unspecified asthma, uncomplicated Plan: Controlled ACT score is 24 Albuterol inhaler as needed (3) Anxiety: Code(s): F41.9 - Anxiety disorder, unspecified Plan: Controlled PHQ-9 and BOBY-7 scores are normal Ativan as needed Routine exercise encouraged Follow-up with symptoms or concerns Verbalized understanding and agreed with the plan (4) Depression: Code(s): F32.A - Depression, unspecified Plan: As above (5) Breast cancer screening by mammogram: Code(s): Z12.31 - Encounter for screening mammogram for malignant neoplasm of breast Plan: Last mammogram was almost 2 years ago Mammogram ordered (6) Laboratory tests ordered as part of a complete physical exam (CPE): Code(s): Z00.00 - Encounter for general adult medical examination without abnormal findings Plan: Fasting labs ordered as part of a complete physical exam. Advised to fast for at least 10 hours before getting labs drawn. May drink water Verbalized understanding and agreed with treatment plan. Orders: Orders UA CC w/rflx Micro + Cult Today Z00.00 - Encounter for general adult medical examination without abnormal findings Microalbumin, Random (w Creat) Today Z00.00 - Encounter for general adult medical examination without abnormal findings Lipid Panel Today Z00.00 - Encounter for general adult medical examination without abnormal findings MM screening mammo BI Today Z12.31 - Encounter for screening mammogram for malignant neoplasm of breast Coding Level of Care Code Est Pt Prev Care 40-64y(31855) Diagnoses Normal physical exam Z00.00 Asthma J45.909 Anxiety F41.9 Depression F32.A Breast cancer screening by mammogram Z12.31 Laboratory tests ordered as part of a complete physical exam (CPE) Z00.00 Additional Codes BOBY-7 Assessment Billing - BOBY-7 Assessment Tool: BOBY-7 Assessment 16168 ([id number])
[2024-04-10 10:40] VITALS: BP 102/62; PULSE 66; RESP 16; TEMP 36.6; O2SAT 99; BMI 26.2
== END 2024-04-10 11:14 | disposition home or self-care (01) ==
LOC: HO.HMCFM 10:27
PROVIDERS: PCP Nurse Practitioner Family; Visit Provider Nurse Practitioner Family
DX: Z00.00 Encounter for general adult medical examination without abnormal findings (principal); J45.909 Unspecified asthma, uncomplicated; F41.9 Anxiety disorder, unspecified; F32.A Depression, unspecified; Z12.31 Encounter for screening mammogram for malignant neoplasm of breast

== ENCOUNTER → 2024-04-10 10:27 | Outpatient (BNVA) | payer OTHER, SELFPAY | PROVIDERS: PCP Nurse Practitioner Family; Visit Provider Nurse Practitioner Family | DX: Z00.00 Encounter for general adult medical examination without abnormal findings (principal); J45.909 Unspecified asthma, uncomplicated; F41.9 Anxiety disorder, unspecified; F32.A Depression, unspecified | CPT/HCPCS: 96127 ==

== ENCOUNTER 2024-06-12 08:22 | Outpatient (REF) | payer OTHER, SELFPAY ==
[2024-06-12 09:26] LABS: Appearance Urine Cloudy; Color Urine Yellow; Glucose Urine UA Negative (Negative); Leukocyte Esterase Urine Negative (Negative); Nitrite Urine Negative (Negative); Specific Gravity - Urine 1.015 (1.005-1.025); UMIC TRIGGER UACC YES; Urine Blood Small (1+) (Negative); Urine Ketones Negative (Negative); Urine Protein Negative (Neg-Trace)
[2024-06-12 09:29] LABS: Bacteria Urine 4+ (None Seen); Hyaline Casts Urine 0-2 /LPF (0-2); Squamous Epithelial Cell Urine >20 /HPF (0-2); UACC Culture Trigger YES
[2024-06-12 11:07] LABS: Cholesterol 197 mg/dL (<200); HDL Cholesterol 59 mg/dL (>40); LDL Cholesterol Calculated 124 mg/dL (<100); Triglycerides 70 mg/dL (<150)
[2024-06-12 11:27] LABS: Creatinine Urine 123.49 mg/dL; Microalbumin Urine < 5.0 mg/L
== END 2024-06-12 08:23 | disposition home or self-care (01) ==
LOC: HO.LAB 08:22
PROVIDERS: PCP Family Medicine; Visit Provider Nurse Practitioner Family
DX: Z00.00 Encounter for general adult medical examination without abnormal findings (principal); R82.90 Unspecified abnormal findings in urine
CPT/HCPCS: 36415; 80061; 81001; 82043; 82570; 87086

== ENCOUNTER 2024-06-15 14:03 | Outpatient (AMB) | payer OTHER, SELFPAY ==
--- NOTE | 2024-06-15 13:58 | MHC.PC.OV ---
Intake Visit Reasons: 2-3 wks telehealth labs jos 05/15 Mental Health Associate Required: No Is last menstrual period known: Yes Last menstrual period: 06/02/24 Post menopausal: No Patient : No Allergies sulfamethoxazole [From Bactrim] Allergy (Intermediate, Verified 04/10/24 10:56) Dizziness trimethoprim [From Bactrim] Allergy (Intermediate, Verified 04/10/24 10:56) Dizziness amoxicillin Allergy (Unknown, Verified 04/10/24 10:56) hives penicillin V Allergy (Unknown, Verified 04/10/24 10:56) hives sertraline [From Zoloft] Allergy (Unknown, Verified 04/10/24 10:56) SON ABD PAIN Tobacco use date assessed: 06/15/24 Dental Screening Dental Screen Date: 06/15/24 Did you have a dental visit in the last 12 months?: Yes Did you have a dental problem in the last 6 months where you did not have access to dental care?: No Was dental information given to patient?: Patient has dentist HPI HPI Comments History of Present Illness Details The patient is a 43-year-old female presenting for a telehealth visit for review of recent lipid panel blood work. She reports a recent onset of ocular migraine last Tuesday, which transitioned into a severe migraine headache. She experienced nausea accompanying the migraine, resulting in her being absent from work for three days. Historically, her migraines are typically hormonal but the recent episode has caused substantial anxiety and concern about potential triggers. She visited Dr. Puente, who diagnosed the ocular migraine. Currently, she feels somewhat better but is apprehensive about recurrent episodes. Additionally, she reports an increase in depressive symptoms possibly exacerbated by recent stressors and is interest on partial hospitalization program. She is not interested in pharmacotherapy for management of anxiety and depression at this time. She sees a therapist bi-weeky. [facility] Medical History History of palpitations Surgical History History of wisdom tooth extraction Family History Mother Breast cancer Maternal Grandfather Atrial fibrillation Paternal Grandmother Heart valve replaced Father No problems noted. 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 Barney Sommers, Guillermina Bhatti, Nirav Molina and colleagues, with an educational linda from [employer]. Review of Systems Const Details: Const Denies chills, Denies fatigue, Denies fever(s), Denies headache(s) and Denies weakness ENT Denies dizziness and Denies headache(s) Card Denies chest pain, Denies lightheadedness, Denies dyspnea and Denies other (Palpitations) Resp Denies cough, Denies dyspnea, Denies wheezing and Denies other ( shortness of breath) GI Denies abdominal pain, Denies melena, Denies hematochezia, Denies change in bowel habits, Denies dyspepsia and Denies nausea Denies hematuria and Denies dysuria Musc Denies abnormal gait, Denies myalgias, Denies arthralgias, Denies numbness and Denies tingling Skin/Breast Denies rash, Denies unusual bruising and Denies wounds Neuro Denies abnormal gait, Denies dizziness, Denies headache(s), Denies memory loss, Denies numbness, Denies Sensory deficit (Neuro), Denies tingling and Denies weakness Psych Reports anxiety, Reports depression, Denies memory loss Endo Denies cold intolerance, Denies fatigue, Denies heat intolerance, Denies polydipsia and Denies polyuria Aller/Immun Denies wheezing Physical exam (Primary Care) Tobacco/Smoking Status: Tobacco use Status Tobacco use date assessed 06/15/24 06/15/24 14:01 Patient Tobacco Use Status Former Tobacco user 06/15/24 14:01 e-Cigarette/Vaping Use Never Used 06/15/24 14:01 Thrive Assessment: Date of Thrive Assessment Date Thrive assessed 04/10/24 06/15/24 14:01 Const Other: Telehealth visit. No physical exam. Telehealth Telehealth Telehealth Platform: Telephone Location of provider rendering services: practice address Location of patient: address on file Patient Identification confirmed using: Name, : Yes Telehealth method: voice only Patient verbally consented to treatment: Yes Patient verbally consented to billing insurance company: Yes Patient informed of any privacy concerns related to visit: Yes Coding Level of Care Code Tele Est Pt Level 3 (14485) Diagnoses Hypercholesterolemia E78.00 Migraine G43.909 Anxiety F41.9 Depression F32.A Time Spent (min) 30 Assessment & Plan Assessment & Plan (1) Hypercholesterolemia: Code(s): E78.00 - Pure hypercholesterolemia, unspecified Category: Medical Plan: Continue current dietary and exercise regimen to manage lipid levels. Reiterate adherence to a low saturated fat and trans-fat diet. Follow up in 3 month and ensure to get fasting lipid panel blood work done before the visit. (2) Migraine: Code(s): G43.909 - Migraine, unspecified, not intractable, without status migrainosus Category: Medical Plan: Consider further assessment of triggers. Encourage continued monitoring of migraine patterns. Referral to neurology if migraines remain uncontrolled. (3) Anxiety: Code(s): F41.9 - Anxiety disorder, unspecified Category: Medical Plan: Discuss potential addition of medication to current therapy. Advise on further evaluation in office for careful consideration of additional treatment modalities. (4) Depression: Code(s): F32.A - Depression, unspecified Category: Medical Plan: Plan as above. Plan I discussed the patient's recent ocular migraine and the ensuing severe migraine headache. I emphasized the importance of monitoring symptoms and identifying possible triggers. We reviewed her cholesterol levels, noting significant improvement and encouraged continued dietary adjustments. For her depressive symptoms, I explained that while therapy is ongoing, pharmacotherapy could be considered if symptoms persist. I sent a message for her to be referred for the partial hospitalization program. We agreed upon the necessity for an in-person consultation for further evaluation and possible medication introduction. She will continue to follow up with her therapist bi-weekly. Orders: Orders Lipid Panel 3 Months E78.00 - Pure hypercholesterolemia, unspecified Referrals Addiction Medicine Referral F32.A - Depression, unspecified, F41.9 - Anxiety disorder, unspecified Patient Instructions: - Monitor and document migraine occurrences and potential triggers. - Adhere to medication plan as discussed for migraines. - Consult with me regarding depression evaluation and potential medication initiation. - Continue dietary and exercise modifications to support hyperlipidemia management. - Message sent to Katharina Bejarano to schedule place a referral for the [facility]. - Schedule an in-office visit for further discussion on mental health and migraine management. Patient was informed and verbally consented to the use of an ambient scribe for clinic note documentation during this visit.
== END 2024-06-15 15:14 | disposition home or self-care (01) ==
LOC: HO.HMCFM 14:03
PROVIDERS: PCP Family Medicine; Visit Provider Nurse Practitioner Family
DX: E78.00 Pure hypercholesterolemia, unspecified (principal); G43.909 Migraine, unspecified, not intractable, without status migrainosus; F41.9 Anxiety disorder, unspecified; F32.A Depression, unspecified

== ENCOUNTER → 2024-06-15 14:03 | Outpatient (BNVA) | payer OTHER, SELFPAY | PROVIDERS: PCP Family Medicine; Visit Provider Nurse Practitioner Family ==

== ENCOUNTER 2024-08-01 11:32 | Outpatient (RCR) | payer OTHER, SELFPAY | END 2024-08-16 14:15 | disposition home or self-care (01) | LOC: HO.OT 11:32 | PROVIDERS: PCP Family Medicine; Visit Provider Internal Medicine | DX: S53.402A Unspecified sprain of left elbow, initial encounter (principal) | CPT/HCPCS: 97033; 97035; 97110; 97140; 97165 ==

== ENCOUNTER → 2024-11-28 12:20 | Outpatient (BNVA) | payer OTHER, SELFPAY | PROVIDERS: PCP Family Medicine; Visit Provider Physician Assistant | DX: S13.4XXA Sprain of ligaments of cervical spine, initial encounter (principal); V89.0XXA Person injured in unspecified motor-vehicle accident, nontraffic, initial encounter | CPT/HCPCS: 99203 ==

== ENCOUNTER → 2024-12-03 11:07 | Outpatient (BNVA) | payer OTHER, SELFPAY | PROVIDERS: PCP Family Medicine; Visit Provider Physician Assistant Medical | DX: S13.4XXA Sprain of ligaments of cervical spine, initial encounter (principal); S16.1XXA Strain of muscle, fascia and tendon at neck level, initial encounter; S46.819A Strain of other muscles, fascia and tendons at shoulder and upper arm level, unspecified arm, initial encounter; M54.50 Low back pain, unspecified; V89.0XXA Person injured in unspecified motor-vehicle accident, nontraffic, initial encounter; R51.9 Headache, unspecified; H53.71 Glare sensitivity; M54.2 Cervicalgia | CPT/HCPCS: 72040; 72100; 99214 ==

== ENCOUNTER → 2024-12-11 13:04 | Outpatient (BNVA) | payer OTHER, SELFPAY | PROVIDERS: PCP Family Medicine; Visit Provider Physician Assistant Medical | DX: S13.4XXA Sprain of ligaments of cervical spine, initial encounter (principal); S16.1XXA Strain of muscle, fascia and tendon at neck level, initial encounter; S46.819A Strain of other muscles, fascia and tendons at shoulder and upper arm level, unspecified arm, initial encounter; V89.0XXA Person injured in unspecified motor-vehicle accident, nontraffic, initial encounter | CPT/HCPCS: 99213 ==

== ENCOUNTER → 2024-12-20 14:03 | Outpatient (BNVA) | payer OTHER, SELFPAY | PROVIDERS: PCP Family Medicine; Visit Provider Physician Assistant Medical | DX: S13.4XXA Sprain of ligaments of cervical spine, initial encounter (principal); V89.0XXA Person injured in unspecified motor-vehicle accident, nontraffic, initial encounter | CPT/HCPCS: 99213 ==

== ENCOUNTER → 2024-12-26 09:12 | Outpatient (BNVA) | payer OTHER, SELFPAY | PROVIDERS: PCP Family Medicine; Visit Provider Physician Assistant | DX: S13.4XXD Sprain of ligaments of cervical spine, subsequent encounter (principal); V89.0XXD Person injured in unspecified motor-vehicle accident, nontraffic, subsequent encounter; Z02.79 Encounter for issue of other medical certificate | CPT/HCPCS: 99213 ==

== ENCOUNTER → 2025-01-16 08:54 | Outpatient (BNVA) | payer OTHER, SELFPAY | PROVIDERS: PCP Family Medicine; Visit Provider Physician Assistant | DX: S13.4XXD Sprain of ligaments of cervical spine, subsequent encounter (principal); V89.0XXD Person injured in unspecified motor-vehicle accident, nontraffic, subsequent encounter; Z02.79 Encounter for issue of other medical certificate | CPT/HCPCS: 99213 ==

== ENCOUNTER 2025-01-21 08:00 | Outpatient (RCR) | payer OTHER, SELFPAY ==
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
== END 2025-01-21 14:32 | disposition home or self-care (01) ==
LOC: HO.PT 08:00
PROVIDERS: PCP Family Medicine; Visit Provider Physician Assistant Medical
DX: S16.1XXD Strain of muscle, fascia and tendon at neck level, subsequent encounter (principal); S39.012D Strain of muscle, fascia and tendon of lower back, subsequent encounter; S13.4XXD Sprain of ligaments of cervical spine, subsequent encounter; S46.819D Strain of other muscles, fascia and tendons at shoulder and upper arm level, unspecified arm, subsequent encounter
CPT/HCPCS: 97014; 97110; 97140; 97161

== ENCOUNTER 2025-04-03 08:36 | Outpatient (REF) | payer OTHER, SELFPAY ==
--- OUTSIDE RECORDS SUMMARY | 2025-04-03 09:57 | XMS_ITS | Encounter Summary ---
Author Organization [facility] Address [address] [place] [address] Care Team Providers Care Research Associate Name Role Phone Merlin Garcia NP Primary Care Provider [phone] Encounter Details Date Type Department Care Team ([facility] st Contact Info) Description 04/29/2023 Scanned Document [facility] [address] Jonathan Mckeon MD [address] [place] [address] Social History Tobacco Use Types Packs/Day Years Used Date Smoking Tobacco: Never Assessed Comments Unknown Sex and Gender Information Value Date Recorded Sex Assigned at Not on file Legal Sex Female 11:54 AM EDT Gender Identity Not on file Sexual Orientation Not on file documented as of this encounter Plan of Treatment Not on file documented as of this encounter Visit Diagnoses Not on filedocumented in this encounter Care Teams Research Associate Relationship Specialty Start Date End Date Merlin Garcia NP [address] [place] [address] PCP - General 03/29/23 documented as of this encounter
--- OUTSIDE RECORDS SUMMARY | 2025-04-03 09:57 | XMS_ITS | Encounter Summary ---
Author Organization [facility] Address [address] [place] [address] Care Team Providers Care Technical Business Analyst Name Role Phone Radha, Chivolouise DESI Primary Care Provider [phone] Reason for Visit * Reason Comments PT Discharge Encounter Details Date Type Department Care Team ([facility] st Contact Info) Description 03/29/2025 Documentation [facility] [address] [place] [phone] Joanne Damon, PT [address] [place] [address] Left Foot - PT Discharge Social History Tobacco Use Types Packs/Day Years Used Date Smoking Tobacco: Never Assessed Comments Unknown Sex and Gender Information Value Date Recorded Sex Assigned at Not on file Legal Sex Female 11:54 AM EDT Gender Identity Not on file Sexual Orientation Not on file documented as of this encounter Discharge Summaries * Joanne Damon PT - 03/29/2025 12:29 PM EDT Images from the original note were not included. Treating Therapist: Joanne Damon, PT Referring Provider Dr Diana Physical Therapy Discharge Summary Diagnoses ICD-10-CM 1. Acquired hallux valgus of left foot M20.12 Evaluation and Treatment History: Attended visits: 10Discharge date: March 29, 2025 Discharge Details: Discharge - TueMarch 29, 2025 Row Name Documentation from 03/29/2025 in [facility] Discharge Details Therapy interventions Manual therapy;Neuro-muscular re-education;Therapeutic Procedures;Therapeuticactivities Reason(s) for Discharge patient did not return to therapy Objective Measurements: Foot/Ankle Musculoskeletal Exam Assessment Details: This documentation is for closing of the episode of care. The patient was not treated on the date of this documentation and there are no charges associated with this documentation. I, Joanne Damon , am documenting this to formally close episode of care to assist pt???s primary therapist Assessment - TueMarch 29, 2025 Row Name Documentation from 03/29/2025 in [facility] Details Therapy interventions Manual therapy;Neuro-muscular re-education;Therapeutic Procedures;Therapeuticactivities Goals: Goals Addressed None documented in this encounter Plan of Treatment Not on file documented as of this encounter Visit Diagnoses Diagnosis Acquired hallux valgus of left foot- Primary documented in this encounter Care Teams Technical Business Analyst Relationship Specialty Start Date End Date Merlin Garcia NP [address] [place] [address] PCP - General 03/29/23 documented as of this encounter
--- OUTSIDE RECORDS SUMMARY | 2025-04-03 09:57 | XMS_ITS | Encounter Summary ---
Author Organization [facility] Address [address] [place] [address] Care Team Providers Care Costume Specialist Name Role Phone Merlin Garcia NP Primary Care Provider Encounter Details Date Type Department Care Team (Late st Contact Info) Description 03/30/2023 Scanned Document [facility] [address] [place] [address] Rebecca Myers PA-C [address] [place] [address] Social History Tobacco Use Types Packs/Day Years [...] on filedocumented in this encounter Care Teams Costume Specialist Relationship Specialty Start Date End Date Merlin Garcia NP [address] [place] [address] PCP - General 03/29/23 documented as of this encounter
--- OUTSIDE RECORDS SUMMARY | 2025-04-03 09:57 | XMS_ITS | Encounter Summary ---
Author Organization [facility] Address [address] [place] [address] Care Team Providers Care Baggage Smasher Name Role Phone Merlin Garcia NP Primary Care Provider [phone] Encounter Details Date Type Department Care Team ([facility] st Contact Info) Description 05/09/2023 Scanned Document [facility] [place] [address] Jonathan Mckeon MD [address] [place] [address] Social History Tobacco Use Types Packs/Day Years [...] on filedocumented in this encounter Care Teams Baggage Smasher Relationship Specialty Start Date End Date Merlin Garcia NP [address] [place] [address] PCP - General 03/29/23 documented as of this encounter
--- OUTSIDE RECORDS SUMMARY | 2025-04-03 09:57 | XMS_ITS | Encounter Summary ---
Author Organization [facility] Address [address] [place] [address] Care Team Providers Care Hand Grinder Name Role Phone Merlin Garcia NP Primary Care Provider Encounter Details Date Type Department Care Team (Late st Contact Info) Description 06/15/2023 Scanned Document [facility] [address] [phone] Jonathan Mckeon MD [address] [place] [address] Social History Tobacco Use Types Packs/Day Years [...] on filedocumented in this encounter Care Teams Hand Grinder Relationship Specialty Start Date End Date Merlin Garcia NP [address] [place] [address] PCP - General 03/29/23 documented as of this encounter
--- OUTSIDE RECORDS SUMMARY | 2025-04-03 09:57 | XMS_ITS | Encounter Summary ---
Author Organization [facility] Address [address] [place] [address] Care Team Providers Care Instrument Mechanic Name Role Phone Merlin Garcia NP Primary Care Provider [phone] Encounter Details Date Type Department Care Team ([facility] st Contact Info) Description 06/14/2023 Scanned Document [facility] [place] [address] Jonathan Mcekon MD [address] [place] [address] Social History Tobacco Use Types Packs/Day Years [...] on filedocumented in this encounter Care Teams Instrument Mechanic Relationship Specialty Start Date End Date Merlin Garcia NP [address] [place] [address] PCP - General 03/29/23 documented as of this encounter
--- OUTSIDE RECORDS SUMMARY | 2025-04-03 09:57 | XMS_ITS | Clinical Summary ---
Author Organization [facility] Address [address] [place] [address] Care Team Providers Care Composition Teacher Name Role Phone Merlin Garcia NP Primary Care Provider [phone] Allergies Active Allergy Reactions Criticality Noted Date Comments Amoxicillin Rash/Dermatitis Low 03/29/2023 Amoxicillin-Pot Clavulanate Rash/Dermatitis Low 03/29/2023 Sulfamethoxazole-Trimet hoprim Other (See Comments) 03/29/2023 DIZZY AND FEELING SICK Sertraline Shortness Of Breath High 03/29/2023 & RASH Medications Vitamin D3 (CHOLECALCIFERO L) 50 MCG (1999 UT) tabletIndicatio ns:Hallux rigidus, left foot Take 2 tablets (4,000 Units total) by mouth daily. 30 tablet 3 3 Active methocarbamol (ROBAXIN) 500 MG tabletIndicatio ns:Hallux rigidus, left foot Take 1 tablet (500 mg total) by mouth 2 (two) times a day as needed for muscle spasms. 60 tablet 3 Active gabapentin (NEURONTIN) 300 MG capsuleIndicati ons:Hallux rigidus, left foot Take 1 capsule (300 mg total) by mouth nightly. 30 capsule 3 Active acetaminophen (TYLENOL) 500 MG tabletIndicatio ns:Hallux rigidus, left foot Take 2 tablets (1,000 mg total) by mouth 3 (three) times a day with meals. 100 tablet 1 3 Active aspirin (MIS ASPIRIN) 325 MG tabletIndicatio ns:Hallux rigidus, left foot Take 1 tablet (325 mg total) by mouth 2 (two) times a day with breakfast and dinner. TAKE AFTER SURGERY TO PREVENT BLOOD CLOTS 60 tablet 3 Active oxyCODONE (ROXICODONE) 5 MG immediate release tabletIndicatio ns:Hallux rigidus, left foot Take 1 tablet (5 mg total) by mouth 3 times daily (every 8 hours) as needed for severe pain. TAKE AFTER SURGERY NEEDED FOR PAIN Max Daily Amount: 15 mg 15 tablet 3 Active Encounters Date Type Department Care Team Description 03/29/2025 Documentation [facility] [address] [phone] Joanne Damon, PT Left Foot - PT Discharge from Last 3 Months Social History Tobacco Use Types Packs/Day Years Used Date Smoking Tobacco: Never Assessed Comments Unknown Sex and Gender Information Value Date Recorded Sex Assigned at Not on file Legal Sex Female 11:54 AM EDT Gender Identity Not on file Sexual Orientation Not on file Plan of Treatment Health Maintenance Due Date Last Done Comments Hepatitis C Virus Screening 1981 HIV Screening 1994 DTaP/Tdap/Td Vaccines (1 - Tdap) 2000 Hepatitis B Vaccines (1 of 3 - 19+ 3-dose series) 2000 Pap Smear (Ages 21-65) 2002 HPV Vaccines (1 - 3-dose SCD M series) 2008 Mammogram 2021 Influenza Vaccine 02/22/2025 COVID-19 Vaccine ( - 2023-2 5 season) 2025 Pneumococcal Vaccine: Pediat ravi (0-5 Years) and At-Risk Patients (6 to 49 Years) Aged Out No longer eligible b ased on patient's age to complete this topic Insurance [facility] Care Teams Composition Teacher Relationship Specialty Start Date End Date Merlin Garcia NP [address] [place] [address] PCP - General 03/29/23
--- OUTSIDE RECORDS SUMMARY | 2025-04-03 09:57 | XMS_ITS | Clinical Summary ---
Author Organization [facility] Address [address] [place] [address] Phone Care Team Providers Care Scrap Crane Operator Name Role Phone Jonathan Johnson MD Primary Care Provider Surgical History Surgery Date Site/Laterality Comments BREAST BIOPSY Left Family History Medical History Relation Name Comments Breast cancer Mother Relation Name Status Comments Mother Social History Tobacco Use Types Packs/Day Years Used Date Smoking Tobacco: Never Assessed Comments No Sex and Gender Information Value Date Recorded Sex Assigned at Female 09/06/2024 10:22 AM EST Legal Sex Female 7:51 AM EST Gender Identity Female 09/06/2024 10:18 AM EST Sexual Orientation Straight 09/06/2024 10 :22 AM EST Obstetrics History Last Filed Vital Signs Vital Sign Reading Time Taken Comments Blood Pressure - - Pulse - - Temperature - - Respiratory Rate - - Oxygen Saturation - - Inhaled Oxygen Concentration - - Weight 68 kg (150 lb) 09/10/2024 3:26 PM EST Height 162.6 cm (5' 4 ) 09/10/2024 3:26 PM EST Body Mass Index 25.75 09/10/2024 3:26 PM EST Plan of Treatment Health Maintenance Due Date Last Done Comments Hepatitis B Vaccines (1 of 3 - 19+ 3-dose series) 2000 Cervical Cancer Screening: Pap Smear 2002 HIV Screening 08/23/2023 Hepatitis C Screening 08/23/2023 Social Influencers of Health Screening 08/23/2023 Depression Screening 07/25/2024 COVID-19 Vaccine ( season) 2025 Influenza Vaccine (#1) 2025 Breast Cancer Screening 10/16/2026 10/17/19 25, 09/10/2024, 07/05/2022, Additional history exists DTaP,Tdap,and Td Vaccines (2 - Td or Tdap) 01/05/2028 01/04/2018 HIB Vaccines Aged Out No longer eligi ble based on patient's age to complete this topic HPV Vaccines Aged Out No longer eligi ble based on patient's age to complete this topic Hepatitis A Vaccines Aged Out No long er eligible based on patient's age to complete this topic IPV Vaccines Aged Out No longer eligi ble based on patient's age to complete this topic MMR Vaccines Aged Out No longer eligi ble based on patient's age to complete this topic Meningococcal ACWY Vaccine Aged Out N o longer eligible based on patient's age to complete this topic Meningococcal B Vaccine Aged Out No l onger eligible based on patient's age to complete this topic Pneumococcal Vaccine: Pediatrics (0 to 5 Years) and At-Risk Patients (6 to 49 Years) Aged Out No longer eligible based on patient's age to complete this topic RSV Immunization Patients Under 20 months Aged Out No longer eligible based on patient's age to complete this topic Varicella Vaccines Aged Out No longer eligible based on patient's age to complete this topic Procedures Procedure Name Priority Date/Time Associated Diagnosis Comments MG MAMMO DIAGNOSTIC ADDL VIEWS RIGHT Routine 10/16/2024 11:01 AM EDT Breast calcification, right from Last 3 Months or Most Recently Relevant to Health Maintenance Results * MG Mammo Diagnostic Addl Views Right (10/16/2024 11:01 AM EDT) Anatomical Region Laterality Modality Breast Right Mammography 10/16/2024 10:5 7 AM EDT Impressions 10/16/2024 11:03 AM EDT The calcifications superiorly in the right breast appear to represent benign milk of calcium. Follow-up mammography of the right breast in 6 months, to include magnification views, is recommended to evaluate for stability of this finding.. BI-RADS CATEGORY: 3 - PROBABLY BENIGN RECOMMENDATION: Short Interval Follow-up is recommended for the right breast in 6 months. Mammo Location: [facility], [address] [place] [address] -------- FINAL REPORT -------- Dictated By: Miguel Acevedo Dictated Date: 10/16/2024 10:57 ET Assigned Physician: Miguel Acevedo Reviewed and Electronically Signed By: Miguel Acevedo Signed Date: 10/16/2024 11:03 ET Workstation ID: [id number] Transcribed By: Self Edit Transcribed Date: 10/16/2024 10:57 ET Narrative 10/16/2024 11:03 AM EDT CLINICAL: The patient is a 43 years Female. Screening mammography performed 09/10/2024 demonstrated microcalcifications superiorly in the right breast. The patient now presents for supplementary imaging. COMPARISON: Most recently 09/10/2024 and most remotely 11/23/2017. TECHNIQUE: Digital mammography of the right breast in spot compression magnification CC and true lateral projections is performed in the TurningArt 2000-D unit. Computer aided detection utilizing the AirInSpaceD system was utilized. FINDINGS: The study confirms the presence of a loose group of microcalcifications at the 12:00 position of the right breast. Several of these appear to be layering and therefore are consistent with benign milk of calcium. No branching or pleomorphism is seen. TISSUE DENSITY: The breasts are heterogeneously dense, which may obscure small masses. (BI-RADS category C) Procedure Note Miguel Acevedo MD - 10/16/2024 CLINICAL: The patient is a 43 years Female. Screening mammographyperformed 09/10/2024 demonstrated microcalcifications superiorly in theright breast. The patient now presents for supplementary imaging. COMPARISON: Most recently 09/10/2024 and most remotely 11/23/2017. TECHNIQUE: Digital mammography of the right breast in spot compressionmagnification CC and true lateral projections is performed in the SpineVision 2000-D unit. Computer aided detection utilizing the AirInSpaceDsystem was utilized. FINDINGS: The study confirms the presence of a loose group ofmicrocalcifications at the 12:00 position of the right breast. Several ofthese appear to be layering and therefore are consistent with benign milkof calcium. No branching or pleomorphism is seen. TISSUE DENSITY: The breasts are heterogeneously dense, which may obscuresmall masses. (BI-RADS category C) IMPRESSION: The calcifications superiorly in the right breast appear to representbenign milk of calcium. Follow-up mammography of the right breast in 6months, to include magnification views, is recommended to evaluate forstability of this finding.. BI-RADS CATEGORY: 3 - PROBABLY BENIGN RECOMMENDATION: Short Interval Follow-up is recommended for the right breast in 6 months. Mammo Location: [facility], [address] [place] [address] -------- FINAL REPORT -------- Dictated By: Miguel Acevedo Dictated Date: 10/16/2024 10:57 ET Assigned Physician: Miguel Acevedo Reviewed and Electronically Signed By: Miguel Acevedo Signed Date: 10/16/2024 11:03 ET Workstation ID: [id number] Transcribed By: Self Edit Transcribed Date: 10/16/2024 10:57 ET Jonathan Johnson MD IMG BI PROCEDURES Final Res ult from Last 3 Months or Most Recently Relevant to Health Maintenance Insurance [facility] Care Teams Scrap Crane Operator Relationship Specialty Start Date End Date Jonathan Johnson MD [address] [place] [address] [address] [place] PCP - General Family Medicine 09/06/24
--- OUTSIDE RECORDS SUMMARY | 2025-04-03 09:57 | XMS_ITS | Encounter Summary ---
Author Organization [facility] Address [address] [place] [address] Care Team Providers Care Jitterbug Operator Name Role Phone Merlin Garcia NP Primary Care Provider [phone] Encounter Details Date Type Department Care Team ([facility] st Contact Info) Description 05/03/2023 Scanned Document [facility] [address] Jonathan Mckeon MD [address] [place] [address] Social History Tobacco Use Types Packs/Day Years [...] on filedocumented in this encounter Care Teams Jitterbug Operator Relationship Specialty Start Date End Date Merlin Garcia NP [address] [place] [address] PCP - General 03/29/23 documented as of this encounter
--- OUTSIDE RECORDS SUMMARY | 2025-04-03 09:57 | XMS_ITS ---
Author Name [facility] Organization Unknown History of Medication Use Medication Directions Dispensed Refills Start Date End Date Stat us oxyCODONE (ROXICODONE) 5 MG immediate release tablet Take 1 tablet (5 mg total) by mouth 3 times daily (every 8 hours) as needed for severe pain. TAKE AFTER SURGERY NEEDED FOR PAIN Max Daily Amount: 15 mg 04/27/2023 05/02/2023 active acetaminophen (TYLENOL) 500 MG tablet Take 2 tablets (1,000 mg total) by mouth 3 (three) times a day with meals. 04/27/2023 active gabapentin (NEURONTIN) 300 MG capsule Take 1 capsule (300 mg total) by mouth nightly. 04/27/2023 active methocarbamol (ROBAXIN) 500 MG tablet Take 1 tablet (500 mg total) by mouth 2 (two) times a day as needed for muscle spasms. 04/27/2023 active Allergies Allergen Reaction Severity Comment Documented Date Source Statu s SERTRALINE SHORTNESS OF BREATH & RASH 03/29/2023 [facility] active AMOXICILLIN RASH/DERMATITIS [facility] AMOXICILLIN-POT CLAVULANATE RASH/DERMATITIS [facility] SULFAMETHOXAZOLE-T RIMETHOPRIM OTHER (SEE COMMENTS) DIZZY AND FEELING SICK [facility] Problems Problem Status Onset Date Problem Type Date of Resoluti on Source Acquired hallux valgus of left foot active EncounterDiagnosisAct CCT Encounters Encounter Type Encounter Reason Primary Diagnosis Location Date Ambulatory Hallux valgus (acquired), left foot Hallux valgus (acquired), left foot [facility] 08/25/2023 Ambulatory Hallux valgus (acquired), left foot Hallux valgus (acquired), left foot [facility] 08/08/2023 Ambulatory Hallux valgus (acquired), left foot Hallux valgus (acquired), [facility] foot [facility] 08/01/2023 Ambulatory Hallux valgus (acquired), left foot Hallux valgus (acquired), left foot [facility] 07/20/2023 Ambulatory Hallux valgus (acquired), left foot Hallux valgus (acquired), left foot [facility] 07/11/2023 Ambulatory Hallux valgus (acquired), left foot Hallux valgus (acquired), left foot [facility] 07/06/2023 Ambulatory Hallux valgus (acquired), left foot Hallux valgus (acquired), left foot [facility] 06/30/2023 Ambulatory Hallux valgus (acquired), left foot Hallux valgus (acquired), left foot [facility] 06/28/2023 Ambulatory Hallux valgus (acquired), left foot Hallux valgus (acquired), left foot [facility] 06/20/2023 Ambulatory Hallux rigidus, left foot Hallux rigidus, [place] [facility] 06[facility]23 Ambulatory Hallux rigidus, left foot Hallux rigidus, left foot [facility] 06/14/2023 Ambulatory Hallux valgus (acquired), left foot Hallux valgus (acquired), left foot [facility] 06/10/2023 Ambulatory Hallux valgus (acquired), left foot Hallux valgus (acquired), left foot [facility] 06/08/2023 Ambulatory [place] 05/24/2023 Ambulatory Pain in left ankle and joints of left foot Pain in left ankle and joints of left foot [place] [facility] 05/24/2023 Ambulatory Hallux rigidus, left foot Hallux rigidus, left foot [facility] 05/10/2023 Ambulatory Hallux rigidus, left foot Hallux rigidus, left foot [facility] 05/10/2023 [facility] [facility] 03/29/2023 Ambulatory Pain in left ankle and joints of left foot Pain in left ankle and joints of left foot [facility] 03/29/2023 Care Team Organization Name Specialty Phone Email Start Date End Da te [facility] 05/02/2023 05/02/2023 [facility] OTTO ANDRADE Primary Care 03/29/2023 10/11/19 [place] [facility] 03/29/2023 03/29/2023 [facility] OTTO ANDRADE Primary Care 03/29/2023 03/29/20 23
--- OUTSIDE RECORDS SUMMARY | 2025-04-03 09:57 | XMS_ITS | Encounter Summary ---
Author Organization [facility] Address [address] [place] [address] Care Team Providers Care Resilient Tile Installer Name Role Phone Merlin Garcia NP Primary Care Provider [phone] Encounter Details Date Type Department Care Team (Late st Contact Info) Description 05/19/2023 Scanned Document [facility] [address] [phone] Jonathan Mckeon MD [address] [place] [address] Social History Tobacco Use Types Packs/Day Years [...] on filedocumented in this encounter Care Teams Resilient Tile Installer Relationship Specialty Start Date End Date Merlin Garcia NP [address] [place] [address] PCP - General 03/29/23 documented as of this encounter
--- OUTSIDE RECORDS SUMMARY | 2025-04-03 09:57 | XMS_ITS | Encounter Summary ---
Author Organization [facility] Address [address] [place] [address] Care Team Providers Care Machinist Mate Name Role Phone Merlin Garcia NP Primary Care Provider Encounter Details Date Type Department Care Team (Late st Contact Info) Description 06/23/2023 Scanned Document [facility] [address] [phone] Jonathan Mckeon MD [address] [place] [address] Social History Tobacco Use Types Packs/Day Years [...] on filedocumented in this encounter Care Teams Machinist Mate Relationship Specialty Start Date End Date Merlin Garcia NP [address] [place] [address] PCP - General 03/29/23 documented as of this encounter
--- OUTSIDE RECORDS SUMMARY | 2025-04-03 09:57 | XMS_ITS | Encounter Summary ---
Author Organization [facility]ly [facility] Address [address] [place] [address] Care Team Providers Care Machine Whitener Name Role Phone Merlin Garcia NP Primary Care Provider [phone] Encounter Details Date Type Department Care Team ([facility] st Contact Info) Description 04/29/2023 Scanned Document [facility] [place] [address] Jonathan Mckeon MD [address] [place] [address] Social History Tobacco Use Types Packs/Day Years [...] on filedocumented in this encounter Care Teams Machine Whitener Relationship Specialty Start Date End Date Merlin Garcia NP [address] [place] [address] PCP - General 03/29/23 documented as of this encounter
[2025-04-03 11:18] LABS: Alanine Aminotransferase 18 U/L (0-31); Albumin Level 4.4 g/dL (3.5-5.0); Alkaline Phosphatase 60 U/L (39-117); Anion Gap 13 (12-20); Aspartate Amino Transferase 19 U/L (5-31); Blood Urea Nitrogen 10 mg/dL (9-16); Calcium 9.1 mg/dL (8.4-10.2); Carbon Dioxide 24 mmol/L (22-29); Chloride 106 mmol/L (96-108); Cholesterol 201 mg/dL (<200); Estimated Glomerular Filt Rate > 60; Gamma Glutamyl Transpeptidase 14 U/L (7-33); HDL Cholesterol 65 mg/dL (>40); Potassium 3.7 mmol/L (3.3-5.1); Sodium 139 mmol/L (135-145); Total Protein 6.9 g/dL (6.5-8.0); Triglycerides 85 mg/dL (<150)
[2025-04-03 11:40] LABS: Free T4 (Free Thyroxine) 1.01 ng/dL (0.71-1.85); Thyroid Stimulating Hormone 4.79 uIU/mL (0.32-4.0)
[2025-04-04 07:08] LABS: Follicle Stimulating Hormone 5.0 mIU/mL
[2025-04-08 14:04] LABS: Testosterone, Free 1.8 pg/mL (0.1-6.4)
[2025-04-23 08:53] LABS: Estradiol Ultra Sensitive 168 pg/mL
== END 2025-04-03 08:37 | disposition home or self-care (01) ==
LOC: HO.LAB 08:36
PROVIDERS: PCP Nurse Practitioner Family; Visit Provider Internal Medicine
DX: Z00.00 Encounter for general adult medical examination without abnormal findings (principal); E11.9 Type 2 diabetes mellitus without complications; F32.81 Premenstrual dysphoric disorder; E28.2 Polycystic ovarian syndrome; K76.0 Fatty (change of) liver, not elsewhere classified; E79.82 Hereditary xanthinuria; R53.83 Other fatigue; E03.9 Hypothyroidism, unspecified; I51.9 Heart disease, unspecified; E78.9 Disorder of lipoprotein metabolism, unspecified; E55.9 Vitamin D deficiency, unspecified; D64.9 Anemia, unspecified; E78.5 Hyperlipidemia, unspecified; N95.9 Unspecified menopausal and perimenopausal disorder
CPT/HCPCS: 36415; 80053; 80061; 82306; 82642; 82670; 82977; 83001; 83002; 84144; 84402; 84403; 84439; 84443; 84481

== ENCOUNTER → 2025-04-03 09:09 | Outpatient (BNVA) | payer OTHER, SELFPAY | PROVIDERS: PCP Nurse Practitioner Family; Visit Provider Physician Assistant | DX: S29.012D Strain of muscle and tendon of back wall of thorax, subsequent encounter (principal); V89.0XXD Person injured in unspecified motor-vehicle accident, nontraffic, subsequent encounter; Z02.79 Encounter for issue of other medical certificate | CPT/HCPCS: 99214 ==

== ENCOUNTER 2025-05-21 12:42 | Outpatient (AMB) | payer OTHER, SELFPAY ==
--- NOTE | 2025-05-21 12:52 | MHC.OFFVIS ---
Intake Visit Reasons: 7M MIGRAINE Allergies sulfamethoxazole (From Bactrim) Allergy (Intermediate, Verified 05/21/25 12:55) Dizziness trimethoprim (From Bactrim) Allergy (Intermediate, Verified 05/21/25 12:55) Dizziness amoxicillin Allergy (Unknown, Verified 05/21/25 12:55) hives penicillin V Allergy (Unknown, Verified 05/21/25 12:55) hives sertraline (From Zoloft) Allergy (Unknown, Verified 05/21/25 12:55) SON ABD PAIN Medication List - Last Reconciled 05/21/25 by Elaine Romero, YOUSIF albuterol sulfate 90 mcg/actuation 2 puffs PO Q6H PRN 30 days cyclobenzaprine 5 mg PO BEDTIME PRN ibuprofen 600 mg PO Q8H PRN ibuprofen 800 mg PO TID lidocaine 5% 1 patch topically 1 patch daily q 12 hours; leave on most painful area for up to 12 hrs lorazepam 0.5 mg PO ONCE PRN 4 days ondansetron HCl 4 mg PO DAILY ondansetron HCl 8 mg PO BID PRN rizatriptan take 1 tab at onset of headache; if no relief may repeat 1 tab after at least 2 hrs; max = 3 tabs/24 hr PO HPI Comments Details: Eliminated corn, most soy, and beef from diet. Taking ivory tea and bone broth. Migraines are better with dietary changes. Last bad migraine was in 12/2024 during period with nausea and vomiting. Using ondansetron and rizatriptan as needed which help. Had ocular migraine after running race in summer 2024 that was not around period, had some headache the next day and left work early. Was under some stress at that time. Sleep was okay. Has some bad migraines with nausea and dizziness around her periods. Migraines usually start in L shoulder area and go up into neck. In 05/2024, she had episode of seeing flashes of light and white zig zag lines in R eye while at work which lasted for about 15-20 minutes. She got a bad headache shortly afterward. She left work and went to eye doctor where she had normal eye exam and was told she had ocular migraine. Possibly triggered by bright lights as it did not happen around her period. Numbness and tingling in hands is better, happens occasionally and wakes up with it. Some bad migraines with achy flu-like symptoms around her periods, usually premenstrual and goes away after period. Lasts 2 days with occasional incapacitating migraine with vomiting. Has to take rizatriptan which usually works within a half hour and rest. Headaches are usually occipital pressure and throbbing with photophobia, sonophobia and smell sensitivity, but no nausea and vomiting. Triggered by stress and hormones. Also triggered by sitting in front of a computer, certain smells, perfumes, foods, and alcohol like beer and wine. Eliminated gluten, working on [employer]. Occasionally gets tingling and numbness in hands and right thumb. Gets pain in left shoulder and back of neck. Has some neck pain that started around 2012, possibly from an injury and was in physical therapy for about 5 weeks. Had some irregular heartbeats with fluttering in chest in 04/2020 and sometimes after a run, once after alcohol. [facility] Medical History (Updated 05/21/25 @ 12:53 by Elaine Romero CNP) History of palpitations Surgical History History of wisdom tooth extraction Family History Mother Breast cancer Maternal Grandfather Atrial fibrillation Paternal Grandmother Heart valve replaced Father No problems noted. 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 Current occupational exposures/hazards: No Cognitive needs: No Hearing needs: No Vision needs: No Review of Systems Const Denies chills, Denies daytime sleepiness, Denies difficulty sleeping, Reports fatigue, Denies fever(s), Denies frequent falls, Reports headache(s), Denies increased appetite, Denies poor appetite, Denies snoring, Denies weakness, Denies weight gain and Denies weight loss Eyes Denies loss of vision ENT Denies vertigo, Reports dizziness, Reports headache(s) and Reports neck pain Card Denies chest pain at rest, Denies chest pain with activity, Denies syncope, Denies leg edema, Denies palpitations, Denies dyspnea and Denies dyspnea on exertion Resp Denies cough, Denies dyspnea, Denies dyspnea on exertion and Denies snoring GI Denies abdominal pain, Denies constipation, Denies heartburn, Denies diarrhea and Denies nausea Denies urinary frequency, Denies urinary incontinence and Denies urinary urgency Musc Denies abnormal gait, Denies back pain, Denies myalgias, Denies arthralgias, Reports neck pain, Reports numbness and Reports tingling Neuro Denies abnormal gait, Denies vertigo, Reports dizziness, Denies syncope, Denies frequent falls, Reports headache(s), Denies lack of coordination, Denies loss of vision, Denies memory loss, Reports numbness, Denies Other visual disturbances, Denies restless legs, Denies seizure-like activity, Reports tingling, Denies paresthesias, Denies tremor(s) and Denies weakness Psych Denies anxiety, Denies depression, Denies auditory hallucinations, Denies memory loss and Denies visual hallucinations Endo Reports fatigue and Denies palpitations Physical Exam Const Other: General Appearance:? normal, in no acute distress. Heart:? S1, S2 normal, no murmurs. Lungs:? clear anteriorly and posteriorly. Musculoskeletal:? normal. Extremities:? no edema. Psych:? alert, oriented, cognitive function intact, cooperative with exam. Neuro Other: Abnormal Neurological Findings:?none.? Mental Status: alert and oriented X 3. Normal attention, orientation, memory, and affect. Cranial Nerves: Pupils are equal, round, and reactive to light. External ocular muscles are intact. Visual de souza are full, no ptosis. Face is symmetrical, no facial weakness or droop. Facial sensations are normal. Tongue protrudes in midline. Palate elevates symmetrically. Shoulder shrugging is normal Motor Examination: Normal muscle tone, bulk and strength. No atrophy or fasciculations. No drift of the extended upper extremities. DTR 2+. Plantars are flexor. Sensory Exam: Normal light touch, temperature, pinprick, vibration, and joint-position sensations. Rhomberg sign is absent. Coordination: No ataxia. No titubation. Gait Exam: Within normal limits. Cerebellar Signs: [id number]-[id number] and rwcl-fu-ecob is normal. Extrapyramidal System: No tremor, rigidity with normal facial expressions. No bradykinesia. No bradyphrenia. Normal arm swing and posture. No propulsion or retropulsion. Speech: Normal. Results Reviewed Results Reviewed: 06/12/24 NCV/EMG UE Normal motor and sensory nerve conduction velocities in the upper extremities. Normal EMG in the left C5-T1 innervated muscles. 06/22/21 NCV/EMG UE Normal motor and sensory nerve conduction velocities in the upper extremities. Normal EMG in the right C5-T1 innervated muscles. Assessment & Plan Assessment & Plan (1) Migraine: Code(s): G43.909 - Migraine, unspecified, not intractable, without status migrainosus Category: Medical Qualifiers: Migraine type: unspecified Status migrainosus presence: without status migrainosus Intractability: not intractable Qualified Code(s): G43.909 - Migraine, unspecified, not intractable, without status migrainosus Plan: Continue rizatriptan 10mg 1 tablet as needed for migraines. Continue ondansetron 4mg 1 tablet as needed for nausea/vomiting. (2) Cervicalgia: Code(s): M54.2 - Cervicalgia Category: Medical Plan Meds tried: ibuprofen Coding Level of Care Code Est Pt Level 4 (77573) Diagnoses Migraine without status migrainosus, not intractable, unspecified migraine type G43.909 Migraine type: unspecified Status migrainosus presence: without status migrainosus Intractability: not intractable Cervicalgia M54.2
--- OUTSIDE RECORDS SUMMARY | 2025-05-21 15:57 | XMS_ITS | Encounter Summary ---
Author Organization [facility] Address [address] [place] [address] Care Team Providers Care Pharmacy Resource Tech Name Role Phone Merlin Garcia NP Primary Care Provider [phone] Encounter Details Date Type Department Care Team ([facility] st Contact Info) Description 05/03/2023 Scanned Document [facility] [place] [address] Jonathan Mckeon MD [address] [place] [address] Social History Tobacco Use Types Packs/Day Years [...] on filedocumented in this encounter Care Teams Pharmacy Resource Tech Relationship Specialty Start Date End Date Merlin Garcia NP [address] [place] [address] PCP - General 03/29/23 documented as of this encounter
--- OUTSIDE RECORDS SUMMARY | 2025-05-21 15:57 | XMS_ITS | Clinical Summary ---
Author Organization [facility] Address [address] [place] [address] Care Team Providers Care Civil Division Deputy Sheriff Name Role Phone Merlin Garcia NP Primary Care Provider [phone] Allergies Active Allergy Reactions Criticality Noted Date [...] Team Description 03/29/2025 Documentation [facility] [address] [id number] Joanne Damon, PT Left Foot [...] series) 2000 Pap Smear (Ages 21-65) 2002 Mammogram 2021 Influenza Vaccine 02/22/2025 COVID-19 Vaccine (1 - 2023-2 5 season) 2025 HPV Vaccines (No Doses Required) Completed Pneumococcal Vaccine: Pediat ravi (0-5 Years) and At-Risk Patients (6 to 49 Years) Aged Out No longer eligible b ased on patient's age to complete this topic Insurance [facility] Care Teams Civil Division Deputy Sheriff Relationship Specialty Start Date End Date Merlin Garcia NP [address] [place] [address] PCP - General 03/29/23
--- OUTSIDE RECORDS SUMMARY | 2025-05-21 15:57 | XMS_ITS | Encounter Summary ---
Author Organization [facility] Address [address] [place] [address] Care Team Providers Care Electrical Mechanical Technician Name Role Phone Merlin Garcia NP Primary Care Provider [phone] Encounter Details Date Type Department Care Team (Late st Contact Info) Description 05/19/2023 Scanned Document [facility] [address] [id number] Jonathan Mckeon MD [address] [place] [address] Social History Tobacco Use Types Packs/Day Years [...] on filedocumented in this encounter Care Teams Electrical Mechanical Technician Relationship Specialty Start Date End Date Merlin Garcia NP [address] [place] [address] PCP - General 03/29/23 documented as of this encounter
--- OUTSIDE RECORDS SUMMARY | 2025-05-21 15:57 | XMS_ITS | Clinical Summary ---
Author Organization [facility] Address [address] [place] [address] Phone Care Team Providers Care Monorail Hooker Name Role Phone Jonathan Johnson MD Primary Care Provider [phone] Surgical History Surgery Date Site/Laterality Comments BREAST [...] 2000 Cervical Cancer Screening: Pap Smear 2002 HPV Vaccines (1 - 3-dose SCDM series) 2008 HIV Screening 08/23/2023 Hepatitis C Screening 08/23/2023 Social Influencers of Health Screening 08/23/2023 Depression Screening 07/25/2024 COVID-19 Vaccine ( season) 2025 Influenza Vaccine (#1) 2025 Breast Cancer Screening 10/16/2026 10/17/19, 09/10/2024, 07/05/2022, Additional history exists DTaP,Tdap,and Td Vaccines (2 - Td or Tdap) 01/05/2028 01/04/2018 RSV Immunization Adult Patients (1 - 1-dose 75+ series) 2056 HIB Vaccines Aged Out No longer eligi [...] right breast in 6 months. Mammo Location: [facility], [address] [place] [address] -------- FINAL REPORT -------- Dictated By: Miguel Acevedo Dictated Date: 10/16/2024 10:57 ET Assigned Physician: Miguel Acevedo Reviewed and Electronically Signed By: Miguel Acevedo Signed Date: 10/16/2024 11:03 ET Workstation ID: [id number] Transcribed By: Self Edit Transcribed Date: 10/16/2024 [...] true lateral projections is performed in the Sync.ME 2000-D unit. Computer aided detection utilizing the JobmetooD system was utilized. FINDINGS: The study confirms [...] true lateral projections is performed in the theAudience 2000-D unit. Computer aided detection utilizing the JobmetooDsystem was utilized. FINDINGS: The study confirms the [...] right breast in 6 months. Mammo Location: [facility], [address] [place] [address] -------- FINAL REPORT -------- Dictated By: Miguel Acevedo Dictated Date: 10/16/2024 10:57 ET Assigned Physician: Miguel Acevedo Reviewed and Electronically Signed By: Miguel Acevedo Signed Date: 10/16/2024 11:03 ET Workstation ID: [id number] Transcribed By: Self Edit Transcribed Date: 10/16/2024 10:57 ET Jonathan Johnson MD IMG BI PROCEDURES Final Res ult from Last 3 Months or Most Recently Relevant to Health Maintenance Insurance [facility] [address] [place] [address] Care Teams Monorail Hooker Relationship Specialty Start Date End Date Jonathan Johnson MD [address] [place] [address] Dr Lizarraga [address] [place], [place] [address] [place] PCP - General Family Medicine 09/06/24
--- OUTSIDE RECORDS SUMMARY | 2025-05-21 15:57 | XMS_ITS | Encounter Summary ---
Author Organization [facility] Address [address] [place] [address] Care Team Providers Care Barrel Tester And Drainer Name Role Phone Merlin Garcia NP Primary Care Provider [phone] Encounter Details Date Type Department Care Team ([facility] st Contact Info) Description 05/09/2023 Scanned Document [facility] [place] [address] Jonathan Mckeon MD [address] [place] [address] Social History Tobacco Use Types Packs/Day Years [...] on filedocumented in this encounter Care Teams Barrel Tester And Drainer Relationship Specialty Start Date End Date Merlin Garcia NP [address] [place] [address] PCP - General 03/29/23 documented as of this encounter
== END 2025-05-21 13:07 | disposition home or self-care (01) ==
LOC: HO.HSM 12:43
PROVIDERS: PCP Family Medicine; Visit Provider Registered Nurse
DX: G43.909 Migraine, unspecified, not intractable, without status migrainosus (principal); M54.2 Cervicalgia
CPT/HCPCS: 99214